=== PATIENT | male | born 1945 | race Two or more races ===

== ENCOUNTER → 2018-02-02 12:29 | Outpatient (CLI) | payer MEDICARE, SELFPAY ==
[2018-02-02 13:47] LABS: PSA,Total- Diagnostic 0.73 ng/mL (0.0-4.0)
== END ==
PROVIDERS: Family Provider Family Medicine; PCP Family Medicine; Visit Provider Urology
DX: R97.20 Elevated prostate specific antigen [PSA] (principal)
CPT/HCPCS: 36415; 84153

== ENCOUNTER 2018-02-15 10:20 | Emergency (ER) | payer MEDICARE, SELFPAY ==
[2018-02-15 10:21] VITALS: BP 173/103; PULSE 141; RESP 22; TEMP 36.7; O2SAT 100; BMI 27.6
--- NOTE | 2018-02-15 10:21 | EKG12_ITS ---
Test Reason : CP Blood Pressure : / mmHG Vent. Rate : 142 BPM Atrial Rate : 125 BPM P-R Int : 000 ms QRS Dur : 090 ms QT Int : 292 ms P-R-T Axes : 000 -04 063 degrees QTc Int : 449 ms Inferior infarct , age undetermined Abnormal ECG Confirmed by TREVOR HASSAN, BRANDIE ([id number]), video news editor ASHOK MALAVE ([id number]) on 02/20/2018 1:03:55 PM Referred By: MELISSA Confirmed By:BRANDIE MURRAY MD
--- NOTE | 2018-02-15 10:35 | EKG12_ITS ---
Test Reason : REPEAT Blood Pressure : / mmHG Vent. Rate : 126 BPM Atrial Rate : 126 BPM P-R Int : 148 ms QRS Dur : 072 ms QT Int : 314 ms P-R-T Axes : 052 014 053 degrees QTc Int : 454 ms Sinus tachycardia Otherwise normal ECG Confirmed by BRANDIE MURRAY MD ([id number]), newspaper editor ASHOK MALAVE ([id number]) on 02/17/2018 1:23:36 PM Referred By: MELISSA Confirmed By:BRANDIE MURRAY MD
--- NOTE | 2018-02-15 10:35 | RAD_ITS ---
STUDY: X-RAY CHEST REASON FOR EXAM: Male, 72 years old. Tachycardia TECHNIQUE: Single AP portable view of the chest. COMPARISON: 12/03/2017. FINDINGS: The lungs are clear and expanded. There is no demonstrated pleural abnormality. Normal size heart. Normal mediastinum and jodi. Normal visualized pulmonary arteries. There is mild atherosclerotic tortuosity of the aortic arch and descending thoracic aorta. There are mild degenerative changes of the visualized thoracic spine. Normal visualized ribs, clavicles, and shoulders. There is no demonstrated abnormality of the visualized soft tissue structures of the upper abdomen. RAD/Chest 1 View (Portable) IMPRESSION: No active pulmonary disease. Electronically Signed: Cliff Anderson MD at 11:31 EDT Tel , Service support ,
[2018-02-15 10:38] VITALS: O2SAT 100
--- NOTE | 2018-02-15 10:45 | ED.RN ---
Dr. Red in room attempting vagal maneuver by having the patient blow through syringe and then placing the patient into supine position without positive outcome. patient hr 153 at this time. will continue to monitor.
[2018-02-15 10:48] LABS: Absolute Lymphocyte Count 4.73 X10^3/ul (0.83-4.51); Absolute Neutrophil Count 5.2 X10^3/uL (2.0-7.7); Basophil# 0.05 X10^3/uL; Basophil% 0.5 % (0-1); Eosinophil# 0.31 X10^3/uL; Eosinophils% 2.8 % (0-5); Hematocrit 42.1 % (40-54); Hemoglobin 14.3 g/dl (13.0-16.5); Lymphocyte # 4.73 X10^3/ul (4.0); Lymphocyte % 43.2 % (19-41); Mean Corpuscular Hgb 28.7 pg (27.0-32.0); Mean Corpuscular Volume 84.4 fL (80-94); Mean Platelet Vol. 9.7 fl (6.2-12.0); Monocyte# 0.66 X10^3/uL; Neutrophil # 5.18 X10^3/uL (2.7-7.7); Neutrophil % 47.3 % (47-70); Platelet Count 330 K/mm3 (150-450); RBC Distribution Width CV 13.4 % (11.6-14.6); RBC Distribution Width SD 41.1 fl (35.1-43.9); Red Blood Count 4.99 M/mm3 (4.6-6.2)
[2018-02-15 10:51] LABS: POSITIVE COUNT NO; POSITIVE DIFFERENTIAL NO; POSITIVE MORPHOLOGY NO
[2018-02-15] MEDS: Aspirin 81 MG TAB.CHEW 324 MG PO (10:52)
[2018-02-15] MEDS: 0.9% Normal Saline 1,000 ML 150 ML IV (10:52)
[2018-02-15] MEDS: Adenosine 6 MG/2 ML Syringe IV (10:57)
[2018-02-15 11:07] LABS: Anion Gap 8 (5-15); BUN 18 mg/dL (7-18); BUN/Creat Ratio 16.7 RATIO (10-20); Chloride 103 mmol/L (98-107); Creatinine, Serum 1.08 mg/dL (0.70-1.30); EST Glomerular Filtration Rate 72 mL/min (>60); Est Glom Filt Rate - Afr Amer 87 mL/min (>60); Estimated Creatinine Clearance 61.57 ml/min; Glucose 228 mg/dL (74-106); Potassium 3.9 mmol/L (3.5-5.1); Sodium Level 138 mmol/L (136-145); Thyroid Stim Hormone (TSH) 0.78 uIU/mL (0.358-3.74)
[2018-02-15 11:20] VITALS: BP 147/80; PULSE 98
--- NOTE | 2018-02-15 11:34 | ED.VISSUMM ---
- ER Visit Summary Date of Service: 02/15/18 Chief Complaint: Palpitations, chest tightness History of Present Illness: The patient is a 72 M he states he was getting ready for nondenominational this morning when he developed palpitations and a tightness across his chest. He felt slightly lightheaded and short of breath. He did not feel that he is going to pass out. Patient states he checked his pulse on his Fitbit and his pulse rate was reading 171. Patient has a history of SVT he was seen nearly 2 years ago for. Patient states he wore a 30 day event monitor with no events or problems since that time. He follows up with Dr. Bello as an outpatient. Physical Examination: Vital signs include a blood pressure 173/103, temperature 98.1, heart rate 141, respiratory rate 22, pulse ox 100% on room air. Head neck examination is unremarkable. Heart is tachycardic and regular. Lung sounds are clear. Abdomen is soft nontender. Lower extremity examination was no calf tenderness or edema. Test Results: EKG reveals SVT with rate of 142. No acute ST changes noted. Chest x-ray is unremarkable. CBC and chemistry studies are significant for a glucose of 228, otherwise unremarkable. Bone is less than 0.02. TSH is 0.78. Emergency Department Course and Treatment: Patient was given aspirin. Adenosine 6 mg IV was given with conversion to a sinus tach rhythm at 125. P waves are clearly visible. Repeat EKG is sinus tach at 126 with no sign of ischemia. On repeat evaluation patient is resting comfortably. His blood pressure is 147/80 and his heart rate is 98. I did review prior records. Patient had a stress echocardiogram in March 2016 and a 30 day event monitor in April 2016. I spoke with Dr. Gardiner. Patient is to be placed on metoprolol 25 mg twice daily and call the office tomorrow for follow-up with Dr. Bello. Treatment Plan: [] Disposition: Discharge Impression: SVT with chemical cardioversion This note was generated with [employer] dictation software. It may contain incorrect words, spelling, and punctuation that were not noted in review of the chart prior to signing ED Disposition - Plan for ED Patient: Chief Complaint: Chest Pain Referrals: Homero Warren DO [Primary Care Provider] -
--- NOTE | 2018-02-15 11:40 | ED.DEP ---
ED Disposition - Plan for ED Patient: Disposition: Home or Assisted Living Chief Complaint: Chest Pain Instructions: ED Tachycardia Pat PSVT Prescriptions: Metoprolol Tartrate 25 mg PO BID #60 tablet Referrals: Kannan Bello MD [STAFF PHYSICIAN] - 1-2 Weeks
[2018-02-15 11:51] VITALS: BP 142/88; PULSE 106; RESP 18; O2SAT 98
[2018-02-15] MEDS: Metoprolol Tartrate 25 MG Tablet PO (12:04)
== END 2018-02-15 12:06 | disposition home or self-care (01) ==
PROVIDERS: Emergency Provider Emergency Medicine; Family Provider Family Medicine; PCP Family Medicine
DX: I47.1 Supraventricular tachycardia (principal); I10 Essential (primary) hypertension; Z85.46 Personal history of malignant neoplasm of prostate
CPT/HCPCS: 71045; 80048; 84443; 84484; 85025; 93005; 99284; J7030; A4216; J0153

== ENCOUNTER → 2018-03-12 12:22 | Outpatient (CLI) | payer MEDICARE, SELFPAY ==
--- NOTE | 2018-03-12 12:23 | STEWCON_ITS ---
Reason For Study: Arrhythmia, SVT Stress Results Protocol: Stress Echocardiogram Maximum Predicted HR: 150 bpm Target HR: 128 bpm% Maximum Pr edicted HR: 107 % DurationHeart Rate Stage (mm:ss) (bpm) BPCom ment BASELINE 65 128/84 DEFINITY 4 ML DILUTED USED DURING STRESS MOR PROCOTOL- STAGE 1 3:00 11 4 124/80 MOR PROTOCOL- STAGE 2 3:00 14 2 138/80 MOR PROTOCOL- STAGE 3 0:45 16 0 / RECOVERY 98 130/60 Stress Duration: 6:45 mm:ss Maximum Stress HR: 160 bpm Baseline Echocardiogram Findings The estimated ejection fraction is 65 %. Stress Echo Wall motion Data Resting WMIntermediate WMStress WM Resting Wall Motion Wall Motion Stress No regional wall motion No regional wall motion abnormalities noted. abnormalities noted. EKG Data Normal intervals are noted. The patient exercised according to the regular Mor protocol for a total duration of 6:46. The maximum heart rate attained was 160 beats per minute. This was 106% of maximum predicted heart rate. At peak exercise, upsloping ST changes only were noted, which did not meet the criteria for ischemia. No clinical angina was noted. Interpretation Summary The study was technically difficult. Contrast injection was performed. The estimated ejection fraction is 65 %. Normal, adequate, treadmill echocardiogram. Negative for ischemia by EKG and echocardiographic criteria. Average exercise capacity for age. No anginal symptoms noted. Rare PVCs noted. Appropriate blood pressure response to exercise. Final LVEF is 75%. Decreased sensitivity due to poor echo windows requiring Definity enhancing agent. Patient tolerated procedure well. No complications. Ordering Physician: Kannan Bello Referring Physician: Kannan Bello Performed By: Heather Mitchell, AGUSTIN, RVT
== END ==
PROVIDERS: Family Provider Family Medicine; PCP Family Medicine; Visit Provider Internal Medicine Cardiovascular Disease
DX: I47.1 Supraventricular tachycardia (principal); I10 Essential (primary) hypertension
CPT/HCPCS: 93017; 93350; Q9957; A4216; C8928

== ENCOUNTER → 2018-09-23 12:01 | Outpatient (CLI) | payer MEDICARE, SELFPAY ==
[2018-09-23 16:04] LABS: ALB/GLOB Ratio 0.8 RATIO (0.9-2.4); AST(SGOT) 27 U/L (15-37); Alanine Aminotransfer ALT/SGPT 44 U/L (16-61); Albumin, Serum 3.3 g/dL (3.2-5.0); Alkaline Phosphatase 109 U/L (45-117); Anion Gap 12 (5-15); BUN 19 mg/dL (7-18); BUN/Creat Ratio 20.1 RATIO (10-20); Calcium,Total 8.8 mg/dL (8.5-10.1); Chloride 98 mmol/L (98-107); Creatinine, Serum 0.94 mg/dL (0.70-1.30); EST Glomerular Filtration Rate 84 mL/min (>60); Est Glom Filt Rate - Afr Amer 101 mL/min (>60); Globulin 4.1 g/dL (2.2-4.2); Glucose 370 mg/dL (74-106); Potassium 4.4 mmol/L (3.5-5.1); Protein, Total 7.4 g/dL (6.4-8.2); Sodium Level 134 mmol/L (136-145)
[2018-09-23 16:05] LABS: Hemoglobin A1c 11.9 % (4.2-6.3)
== END ==
PROVIDERS: Family Provider Family Medicine; PCP Family Medicine; Visit Provider Family Medicine
DX: E11.9 Type 2 diabetes mellitus without complications (principal)
CPT/HCPCS: 36415; 80053; 83036

== ENCOUNTER → 2018-09-28 13:31 | Outpatient (CLI) | payer MEDICARE, SELFPAY ==
--- NOTE | 2018-09-28 13:40 | RAD_ITS ---
STUDY: X-RAY CHEST REASON FOR EXAM: Male, 72 years old. Cough after spending time in [place]. TECHNIQUE: PA and lateral views of the chest. COMPARISON: February 15, 2018. FINDINGS: The lungs are clear and expanded. There is no demonstrated pleural abnormality. Normal size heart. Normal mediastinum and jodi. Normal visualized pulmonary arteries. Normal visualized aortic arch and descending thoracic aorta. Normal visualized thoracic spine. Normal visualized ribs, clavicles, and shoulders. There is no demonstrated abnormality of the visualized soft tissue structures of the upper abdomen. RAD/Chest PA and Lateral IMPRESSION: No acute cardiopulmonary disease or interval change. Electronically Signed: Javier Gerard DO at 19:24 EST Tel [phone], Service support ,
[2018-09-28 15:42] LABS: Absolute Neutrophil Count 4.8 X10^3/uL (2.0-7.7); Basophil# 0.04 X10^3/uL; Basophil% 0.5 % (0-1); Eosinophil# 0.26 X10^3/uL; Eosinophils% 3.3 % (0-5); Hematocrit 42.7 % (40-54); Hemoglobin 14.3 g/dl (13.0-16.5); Lymphocyte % 26.7 % (19-41); Mean Corp Hgb Conc 33.5 g/gl (32-36); Mean Corpuscular Hgb 27.4 pg (27.0-32.0); Mean Corpuscular Volume 81.8 fL (80-94); Mean Platelet Vol. 10.2 fl (6.2-12.0); Monocyte# 0.61 X10^3/uL; Monocyte% 7.8 % (0-10); Neutrophil # 4.84 X10^3/uL (2.7-7.7); Neutrophil % 61.4 % (47-70); Platelet Count 378 K/mm3 (150-450); RBC Distribution Width CV 13.1 % (11.6-14.6); RBC Distribution Width SD 38.7 fl (35.1-43.9); Red Blood Count 5.22 M/mm3 (4.6-6.2); White Blood Count 7.9 K/mm3 (4.4-11.0)
[2018-09-28 15:44] LABS: ALB/GLOB Ratio 0.8 RATIO (0.9-2.4); AST(SGOT) 23 U/L (15-37); Alanine Aminotransfer ALT/SGPT 44 U/L (16-61); Albumin, Serum 3.3 g/dL (3.2-5.0); Alkaline Phosphatase 105 U/L (45-117); Anion Gap 7 (5-15); BUN 22 mg/dL (7-18); BUN/Creat Ratio 19.6 RATIO (10-20); CPK Total, Creatine Kinase 46 U/L (39-308); Chloride 98 mmol/L (98-107); Creatinine, Serum 1.12 mg/dL (0.70-1.30); EST Glomerular Filtration Rate 69 mL/min (>60); Est Glom Filt Rate - Afr Amer 83 mL/min (>60); Glucose 357 mg/dL (74-106); Potassium 4.3 mmol/L (3.5-5.1); Protein, Total 7.3 g/dL (6.4-8.2); Sodium Level 132 mmol/L (136-145)
[2018-09-28 16:01] LABS: POSITIVE COUNT NO; POSITIVE DIFFERENTIAL NO; POSITIVE MORPHOLOGY NO
[2018-09-28 17:00] LABS: Erythrocyte Sedimentation Rate 16 mm/hr (0-20)
== END ==
PROVIDERS: Family Provider Family Medicine; PCP Family Medicine; Referring Provider Family Medicine; Visit Provider Family Medicine
DX: J06.9 Acute upper respiratory infection, unspecified (principal)
CPT/HCPCS: 36415; 71046; 80053; 82550; 85025; 85652; 86140

== ENCOUNTER → 2019-02-02 07:13 | Outpatient (CLI) | payer MEDICARE, SELFPAY ==
[2018-02-17 14:09] VITALS: BMI 27.0
--- NOTE | 2019-02-02 07:51 | RAD_ITS ---
STUDY: X-RAY CHEST REASON FOR EXAM: Male, 73 years old. Productive cough x1 week TECHNIQUE: PA and lateral views of the chest. COMPARISON: 09/28/2018 FINDINGS: The lungs are clear and expanded. There is no demonstrated pleural abnormality. Normal size heart. Normal mediastinum and jodi. Normal visualized pulmonary arteries. Normal visualized aortic arch and descending thoracic aorta. Normal visualized thoracic spine. Normal visualized ribs, clavicles, and shoulders. There is no demonstrated abnormality of the visualized soft tissue structures of the upper abdomen. RAD/Chest PA and Lateral IMPRESSION: Normal x-ray examination of the chest. Electronically Signed: Juan David Colon DO at 13:31 EDT Tel , Service support ,
[2019-02-02 08:17] LABS: ALB/GLOB Ratio 0.9 RATIO (0.9-2.4); AST(SGOT) 18 U/L (15-37); Alanine Aminotransfer ALT/SGPT 31 U/L (16-61); Albumin, Serum 3.6 g/dL (3.2-5.0); Alkaline Phosphatase 85 U/L (45-117); Anion Gap 5 (5-15); BUN 18 mg/dL (7-18); BUN/Creat Ratio 16.8 RATIO (10-20); Calcium,Total 8.6 mg/dL (8.5-10.1); Chloride 104 mmol/L (98-107); Cholesterol 152 mg/dL (200); Creatinine, Serum 1.07 mg/dL (0.70-1.30); EST Glomerular Filtration Rate 72 mL/min (>60); Est Glom Filt Rate - Afr Amer 88 mL/min (>60); Globulin 3.9 g/dL (2.2-4.2); Glucose 168 mg/dL (74-106); High Density Lipoprotein 52 mg/dL; Potassium 4.4 mmol/L (3.5-5.1); Protein, Total 7.5 g/dL (6.4-8.2); Sodium Level 135 mmol/L (136-145); Triglycerides 126 mg/dL; Very Low Density Lipoprotein 25 mg/dL (5-40)
[2019-02-02 08:20] LABS: Hemoglobin A1c 7.9 % (4.2-6.3)
[2019-02-02 08:54] LABS: Microalbumin,Random Urine 40.8 mg/L (NO RANGE EST.); Microalbumin:Creatinine Ratio 12.1 mg/g CRE (<30 mg/g CRE)
== END ==
PROVIDERS: Family Provider Family Medicine; PCP Family Medicine; Referring Provider Family Medicine; Visit Provider Family Medicine
DX: R05 Cough (principal); E11.9 Type 2 diabetes mellitus without complications
CPT/HCPCS: 36415; 71046; 80053; 80061; 82043; 82570; 83036

== ENCOUNTER 2019-02-07 08:51 | Emergency (ER) | payer MEDICARE, SELFPAY ==
[2019-02-07 08:51] VITALS: BP 150/80; PULSE 91; RESP 16; TEMP 36.4; O2SAT 99; BMI 26.7
[2019-02-07 08:53] VITALS: BP 150/80; PULSE 91; RESP 16; TEMP 36.4; O2SAT 99
--- NOTE | 2019-02-07 09:24 | EKG12_ITS ---
Test Reason : GEN ILLNESS Blood Pressure : / mmHG Vent. Rate : 073 BPM Atrial Rate : 073 BPM P-R Int : 190 ms QRS Dur : 070 ms QT Int : 392 ms P-R-T Axes : 012 -03 046 degrees QTc Int : 431 ms Normal sinus rhythm Normal ECG Confirmed by TREVOR HASSAN, BRANDIE ([id number]), science editor MISHA MACIAS ([id number]) on 02/08/2019 1:07:08 PM Referred By: Homero Warren Confirmed By:BRANDIE MURRAY MD
[2019-02-07 09:50] LABS: Absolute Lymphocyte Count 1.31 X10^3/ul (0.83-4.51); Absolute Neutrophil Count 5.1 X10^3/uL (2.0-7.7); Basophil# 0.03 X10^3/uL; Basophil% 0.4 % (0-1); Eosinophil# 0.24 X10^3/uL; Eosinophils% 3.3 % (0-5); Hemoglobin 13.2 g/dl (13.0-16.5); Lymphocyte # 1.31 X10^3/ul (4.0); Mean Corpuscular Hgb 27.9 pg (27.0-32.0); Mean Corpuscular Volume 84.6 fL (80-94); Mean Platelet Vol. 9.3 fl (6.2-12.0); Monocyte# 0.61 X10^3/uL; Monocyte% 8.4 % (0-10); Neutrophil # 5.09 X10^3/uL (2.7-7.7); Neutrophil % 69.8 % (47-70); Platelet Count 277 K/mm3 (150-450); RBC Distribution Width CV 12.6 % (11.6-14.6); RBC Distribution Width SD 38.3 fl (35.1-43.9); Red Blood Count 4.73 M/mm3 (4.6-6.2); White Blood Count 7.3 K/mm3 (4.4-11.0)
--- NOTE | 2019-02-07 09:56 | ED.VISSUMM ---
- ER Visit Summary Date of Service: 02/07/19 Chief Complaint: Cough, congestion, dizziness History of Present Illness: The patient is a 73 M who presents with cough, congestion, dizziness that is been getting worse over the past week. Patient states he saw his primary care physician 6 days ago who did a chest x-ray at that time which was negative. Patient states his cough has gotten worse since that time. Patient admits to some mild yellow sputum. Patient admits to some pain in his chest with coughing. Patient states he also had a syncopal episode 5 days ago. Patient states he was shaving and felt dizzy. Patient states he went to sit down when he passed out and fell to the floor. Patient complains of some pain over his left lower ribs. Patient admits to some nausea but denies any vomiting. Patient admits to subjective chills at home. Physical Examination: Vital signs are stable. Patient is afebrile. Patient is in no acute distress. Oral mucosa is pink and moist. Neck is supple. Trachea is midline. There is no JVD noted. Heart was regular rate and rhythm. Lungs are clear and equal bilateral. Abdomen is soft and nontender. There is tenderness over the left lower chest wall. Cranial nerves II through XII are intact. There are no focal motor or sensory deficits noted. Test Results: EKG showed normal sinus rhythm with a rate of 73. There are no acute ST or T wave changes. PA and lateral chest x-ray was obtained. There is no acute pulmonary process. CBC, basic metabolic profile, and troponin were obtained and were normal. Emergency Department Course and Treatment: Patient felt better on reevaluation. Patient was instructed to continue his codeine/guaifenesin cough medicine as needed. Patient was instructed to follow-up with his primary care physician in 7-10 days. Patient understood and was agreeable with the plan. All questions were answered. Disposition: Discharge home Impression: Viral upper respiratory infection This note was generated with [employer] dictation software. It may contain incorrect words, spelling, and punctuation that were not noted in review of the chart prior to signing ED Disposition - Plan for ED Patient: Disposition: Home or Assisted Living Diagnosis: Viral upper respiratory tract infection with cough Instructions: ED URI Viral Referrals: Homero Warren DO [Primary Care Provider] - 5-7 Days
[2019-02-07 10:01] LABS: POSITIVE COUNT NO; POSITIVE DIFFERENTIAL NO; POSITIVE MORPHOLOGY NO
[2019-02-07 10:04] VITALS: BP 122/54; BP 128/60; BP 134/68; PULSE 70; PULSE 72; PULSE 74
[2019-02-07 10:06] LABS: Anion Gap 9 (5-15); BUN 18 mg/dL (7-18); BUN/Creat Ratio 16.2 RATIO (10-20); Calcium,Total 8.8 mg/dL (8.5-10.1); Chloride 101 mmol/L (98-107); Creatinine, Serum 1.11 mg/dL (0.70-1.30); EST Glomerular Filtration Rate 69 mL/min (>60); Est Glom Filt Rate - Afr Amer 84 mL/min (>60); Estimated Creatinine Clearance 59.05 ml/min; Glucose 266 mg/dL (74-106); Potassium 4.6 mmol/L (3.5-5.1); Sodium Level 137 mmol/L (136-145)
--- NOTE | 2019-02-07 10:25 | RAD_ITS ---
STUDY: X-RAY CHEST REASON FOR EXAM: Male, 73 years old. Cough. Congestion. TECHNIQUE: PA and lateral views of the chest. COMPARISON: February 02, 2019 FINDINGS: The lungs are clear and expanded. There is no demonstrated pleural abnormality. Normal size heart. Normal mediastinum and jodi. Normal visualized pulmonary arteries. Normal visualized aortic arch and descending thoracic aorta. There is demineralization of the osseous structures. Mild degenerative change of the spine. Normal visualized ribs, clavicles, and shoulders. There is no demonstrated abnormality of the visualized soft tissue structures of the upper abdomen. RAD/Chest PA and Lateral IMPRESSION: Degenerative changes, as described above. No demonstrated acute cardiopulmonary process. Electronically Signed: Alex Maradiaga MD at 11:19 EDT , Service support ,
--- NOTE | 2019-02-07 12:07 | ED.RN ---
PT'S APPROACHES THE DESK ABOUT PATIENT'S STATUS. MADE AWARE AGAIN THAT WE WERE WAITING FOR THE PHYSICIAN TO COME AND SPEAK WITH THEM. PATIENT'S STATES I'M NEVER COMING BACK. TECHNOLOGY STRATEGIST TO THE BEDSIDE.
[2019-02-07 12:10] VITALS: BP 136/74; PULSE 71; RESP 16; O2SAT 96
--- NOTE | 2019-02-07 12:19 | ED.RN ---
PATIENT RINGS OUT STATING I'M READY TO GO. IV DC'ED, CATHETER INTACT, SMALL GAUZE DRESSING PLACED. PATIENT MADE AWARE WHEN THIS RN GETS PAPERWORK THEY WILL BE DISCHARGED. PATIENT STATES I'VE BEEN WAITING FOR 6 HOURS IN PAIN, YOU THINK I'M LEAVING WITHOUT MY PAPERWORK? PATIENT MADE AWARE THAT THE DOCTOR PROVIDES THE PAPERWORK AND WHEN HE HAS IT READY HE WILL BE DISCHARGED. PATIENT STATES IT'S ALWAYS SOMEBODY ELSE'S RESPONSIBILITY.
--- NOTE | 2019-02-07 12:23 | ED.RN ---
DISCHARGE INSTRUCTIONS OBTAINED AND REVIEWED WITH PATIENT. PATIENT DENIES QUESTIONS OR CONCERNS AND VOICES UNDERSTANDING OF DISCHARGE INSTRUCTIONS. PT AMBULATES OUT OF ROOM WITHOUT DIFFICULTY.
== END 2019-02-07 12:23 | disposition home or self-care (01) ==
PROVIDERS: Emergency Provider Emergency Medicine; Family Provider Family Medicine; PCP Family Medicine
DX: J06.9 Acute upper respiratory infection, unspecified (principal); E11.9 Type 2 diabetes mellitus without complications; I10 Essential (primary) hypertension; Z85.46 Personal history of malignant neoplasm of prostate
CPT/HCPCS: 71046; 80048; 84484; 85025; 93005; 99283

== ENCOUNTER → 2019-09-17 12:21 | Outpatient (CLI) | payer MEDICARE, SELFPAY ==
--- NOTE | 2019-09-17 12:30 | RAD_ITS ---
STUDY: X-RAY CHEST REASON FOR EXAM: Male, 73 years old. Frequent coughs, congestion TECHNIQUE: PA and lateral views of the chest. COMPARISON: 02/07/2019 FINDINGS: The lungs are clear and expanded. There is no demonstrated pleural abnormality. Normal size heart. Normal mediastinum and jodi. Normal visualized pulmonary arteries. Normal visualized aortic arch and descending thoracic aorta. Normal visualized thoracic spine. Normal visualized ribs, clavicles, and shoulders. There is no demonstrated abnormality of the visualized soft tissue structures of the upper abdomen. RAD/Chest PA and Lateral IMPRESSION: No acute pulmonary process Electronically Signed: Daniel De Leon MD at 9:11 EDT , Service support ,
== END ==
PROVIDERS: Family Provider Family Medicine; PCP Family Medicine; Referring Provider Family Medicine; Visit Provider Family Medicine
DX: R05 Cough (principal)
CPT/HCPCS: 71046

== ENCOUNTER → 2020-07-25 | Outpatient (CLI) | payer MEDICARE, SELFPAY ==
[2020-07-25 17:01] LABS: PSA,Total- Diagnostic 0.57 ng/mL (0.0-4.0)
== END | disposition home or self-care (01) ==
LOC: LAB 15:40
PROVIDERS: PCP Family Medicine; Referring Provider Urology; Visit Provider Urology
DX: C61 Malignant neoplasm of prostate (principal)
CPT/HCPCS: 36415; 84153

== ENCOUNTER → 2020-07-31 | Outpatient (CLI) | payer MEDICARE, SELFPAY ==
[2020-07-31 08:05] LABS: Microalbumin,Random Urine < 5.0 mg/L (NO RANGE EST.)
[2020-07-31 08:37] LABS: ALB/GLOB Ratio 0.9 RATIO (0.9-2.4); AST(SGOT) 18 U/L (15-37); Alanine Aminotransfer ALT/SGPT 40 U/L (16-61); Albumin, Serum 3.6 g/dL (3.2-5.0); Alkaline Phosphatase 92 U/L (45-117); Anion Gap 5 (5-15); BUN 18 mg/dL (7-18); BUN/Creat Ratio 18.5 RATIO (10-20); Calcium,Total 8.9 mg/dL (8.5-10.1); Chloride 106 mmol/L (98-107); Cholesterol 196 mg/dL (200); Creatinine, Serum 0.97 mg/dL (0.70-1.30); EST Glomerular Filtration Rate 80 mL/min (>60); Est Glom Filt Rate - Afr Amer 97 mL/min (>60); Glucose 144 mg/dL (74-106); High Density Lipoprotein 65 mg/dL; Potassium 4.2 mmol/L (3.5-5.1); Protein, Total 7.6 g/dL (6.4-8.2); Sodium Level 139 mmol/L (136-145); Thyroid Stim Hormone (TSH) 1.05 uIU/mL (0.358-3.74); Triglycerides 125 mg/dL; Very Low Density Lipoprotein 25 mg/dL (5-40)
[2020-07-31 08:50] LABS: Absolute Lymphocyte Count 2.84 X10^3/uL (0.83-4.51); Absolute Neutrophil Count 4.4 X10^3/uL (2.0-7.7); Basophil# 0.06 X10^3/uL; Basophil% 0.7 % (0-1); Eosinophil# 0.38 X10^3/uL; Eosinophils% 4.5 % (0-5); Hematocrit 43.9 % (40-54); Hemoglobin 13.9 g/dL (13.0-16.5); Lymphocyte # 2.84 X10^3/ul (4.0); Lymphocyte % 33.9 % (19-41); Mean Corp Hgb Conc 31.7 g/dL (32-36); Mean Corpuscular Hgb 27.2 pg (27.0-32.0); Mean Corpuscular Volume 85.9 fL (80-94); Mean Platelet Vol. 9.7 fl (6.2-12.0); Monocyte# 0.69 X10^3/uL; Monocyte% 8.2 % (0-10); NRBC Flagged by Analyzer 0 % (0-5); Neutrophil % 52.6 % (47-70); Platelet Count 305 K/mm3 (150-450); RBC Distribution Width CV 13.4 % (11.6-14.6); RBC Distribution Width SD 41.7 fl (35.1-43.9); Red Blood Count 5.11 M/mm3 (4.6-6.2); White Blood Count 8.4 K/mm3 (4.4-11.0)
== END | disposition home or self-care (01) ==
LOC: LAB 07:04
PROVIDERS: PCP Family Medicine; Referring Provider Family Medicine; Visit Provider Family Medicine
DX: E11.9 Type 2 diabetes mellitus without complications (principal); E01.0 Iodine-deficiency related diffuse (endemic) goiter; Z51.81 Encounter for therapeutic drug level monitoring
CPT/HCPCS: 36415; 80053; 80061; 82043; 82570; 84443; 85025

== ENCOUNTER → 2020-08-03 | Outpatient (CLI) | payer MEDICARE, SELFPAY ==
--- NOTE | 2020-08-03 14:23 | US_ITS ---
STUDY: THYROID ULTRASOUND REASON FOR EXAM: Male, 74 years old. NODULES TECHNIQUE: Ultrasound evaluation of the thyroid was performed with real-time and static gudino-scale imaging. COMPARISON: Comparison is made with prior ultrasound of the thyroid dated 03/02/2015. FINDINGS: RIGHT LOBE: The right lobe of the thyroid gland is enlarged and measures 6.1 cm x 3.7 cm x 3.1 cm. There is a homogeneous echotexture. There is a dominant complex solid and slight cystic nodule in the upper pole of the right lobe measuring 3.8 cm x 2.97 x 2.1 cm. Intranodular flow is seen. This has increased in size as compared to prior study. There is also evidence of a complex solid and cystic nodule in the upper pole measuring 1 cm x 1.5 cm x 1.2 cm. There is an 8 mm x 7 mm x 6 mm solid nodule with a peripheral calcifications in the lower pole. LEFT LOBE: The left lobe of the thyroid gland is enlarged and measures 5.6 x 1.7 cm x 2.2 cm. There is a homogeneous echotexture. There is a solid nodule measuring 2.3 cm x 1.87 x 1.7 cm in the inferior pole of the right lobe. There is also evidence of a complex solid and cystic nodule measuring 1.1 cm x 1.2 cm x 1.2 cm in the mid pole as well as a 1.5 cm x 1.1 cm x 0.9 cm solid nodule with increase flow in the lower pole. ISTHMUS: The isthmus is enlarged and measures 7 mm. The regional lymph nodes are normal. US/Thyroid IMPRESSION: Thyromegaly. Dominant nodules in both thyroid lobes as described. Biopsy is recommended. Electronically Signed: Jaylan Lewis, at 8:35 EDT , Service support ,
== END | disposition home or self-care (01) ==
LOC: US 14:21
PROVIDERS: PCP Family Medicine; Referring Provider Family Medicine; Visit Provider Family Medicine
DX: E04.2 Nontoxic multinodular goiter (principal)
CPT/HCPCS: 76536

== ENCOUNTER 2021-02-02 04:54 | Inpatient (IN) | payer MEDICARE, SELFPAY ==
[2021-02-02] VITALS (17 sets, daily range): BP systolic 104–133; BP diastolic 53–78; PULSE 74–144; RESP 16–34; TEMP 35.8–37.7; O2SAT 94–100; BMI 28.0; BMI 28.1; BMI 28.2
--- NOTE | 2021-02-02 04:58 | ED.RN ---
CALLED FOR EKG PER RN REQUEST, PULLED OLD EKGS FOR
--- NOTE | 2021-02-02 05:06 | EKG12_ITS ---
Test Reason : CP Blood Pressure : / mmHG Vent. Rate : 141 BPM Atrial Rate : 056 BPM P-R Int : 000 ms QRS Dur : 064 ms QT Int : 302 ms P-R-T Axes : 000 -13 047 degrees QTc Int : 462 ms Supraventricular tachycardia Nonspecific ST abnormality Abnormal ECG Confirmed by TREVOR HASSAN, BRANDIE ([id number]), editorial writer MISHA MACIAS ([id number]) on 02/06/2021 8:57:15 AM Referred By: CL Confirmed By:BRANDIE MURRAY MD
--- NOTE | 2021-02-02 05:06 | RAD_ITS ---
STUDY: X-RAY CHEST REASON FOR EXAM: Male, 75 years old. chest pain TECHNIQUE: Single frontal view of the chest. COMPARISON: 09/17/2019 FINDINGS: EKG leads artifacts. No pneumothorax or pleural effusion. Right greater than left bilateral basilar atelectasis/infiltrates. Normal size heart. Aortic calcifications. There are diffuse degenerative changes of the visualized thoracic spine. There is no demonstrated abnormality of the visualized soft tissue structures of the upper abdomen. RAD/Chest 1 View (Portable) IMPRESSION: Right greater than left bilateral basilar atelectasis/infiltrates. Question developing consolidation in the right lung base. Recommend follow-up radiograph to ensure resolution and to exclude underlying mass. Electronically Signed: Junior Marie MD at 5:45 EDT Tel , Service support ,
[2021-02-02 05:11] LABS: Absolute Lymphocyte Count 1.82 X10^3/uL (0.83-4.51); Absolute Neutrophil Count 12.2 X10^3/uL (2.0-7.7); Basophil# 0.05 X10^3/uL; Basophil% 0.3 % (0-1); Eosinophil# 0.08 X10^3/uL; Eosinophils% 0.5 % (0-5); Hematocrit 43.7 % (40-54); Hemoglobin 14.3 g/dL (13.0-16.5); Lymphocyte # 1.82 X10^3/ul (4.0); Lymphocyte % 12.1 % (19-41); Mean Corp Hgb Conc 32.7 g/dL (32-36); Mean Corpuscular Hgb 27.5 pg (27.0-32.0); Mean Platelet Vol. 9.9 fl (6.2-12.0); Monocyte# 0.88 X10^3/uL; Monocyte% 5.8 % (0-10); NRBC Flagged by Analyzer 0 % (0-5); Neutrophil # 12.21 X10^3/uL (2.7-7.7); Neutrophil % 80.9 % (47-70); Platelet Count 270 K/mm3 (150-450); RBC Distribution Width SD 39.6 fl (35.1-43.9); White Blood Count 15.1 K/mm3 (4.4-11.0)
[2021-02-02] MEDS: Adenosine 6 MG/2 ML Syringe IV (05:13)
[2021-02-02] MEDS: 0.9% Normal Saline 1,000 ML 999 ML IV (05:13)
[2021-02-02 05:24] LABS: Anion Gap 11 (5-15); BUN 16 mg/dL (7-18); BUN/Creat Ratio 13.8 RATIO (10-20); Calcium,Total 8.9 mg/dL (8.5-10.1); Chloride 102 mmol/L (98-107); Creatinine, Serum 1.16 mg/dL (0.70-1.30); EST Glomerular Filtration Rate 66 mL/min (>60); Est Glom Filt Rate - Afr Amer 79 mL/min (>60); Estimated Creatinine Clearance 53.03 ml/min; Glucose 256 mg/dL (74-106); Potassium 4.1 mmol/L (3.5-5.1); Sodium Level 135 mmol/L (136-145)
[2021-02-02] MEDS: Adenosine 6 MG/2 ML Syringe 12 MG IV (05:31)
--- NOTE | 2021-02-02 05:52 | CT_ITS ---
STUDY: CTA CHEST REASON FOR EXAM: Male, 75 years old. Cough. Chest tightness. Elevated white count. History of prostate cancer. RADIATION DOSAGE (If Supplied By Facility): CTDIvol = ( 12.28 ) mGy, DLP = ( 539.13 ) mGycm TECHNIQUE: The examination was performed with the intravenous administration of IV 75mL Isovue-370. Post-processing of the angiographic images was performed, with multiplanar reformation and 3D reconstruction. Individualized dose optimization techniques were used for this CT. COMPARISON: Comparison is made with prior chest radiograph done earlier in the day. FINDINGS: Small benign-appearing bilateral axillary lymph nodes. Normal enhancement of the main pulmonary artery and right and left pulmonary arteries. Normal enhancement of the bilateral peripheral pulmonary arteries. There is no demonstrated pulmonary embolism. Normal thoracic aorta and visualized great vessels. There is no demonstrated aortic dissection. Normal heart and pericardium. Normal mediastinum. Normal hilar regions. Normal visualized trachea and bronchi. The lungs are well expanded. Focal infiltrate in the posterior segment of the right upper lobe abutting the right minor fissure. Consolidation in the posterior aspect of the right middle lobe with air bronchograms. This abuts the right major fissure. Focal consolidation in the right lower lobe. Minimal increased markings in the left lower lobe. Normal pleura. Normal chest wall structures. There are mild degenerative changes of thoracic spine. Fatty infiltration of the liver. CT/CTA Chest W/WO Contrast IMPRESSION: Infiltrate in the posterior segment of the right upper lobe as well as in the right middle lobe and right lower minimal increased markings at the left lung base. No evidence of pulmonary embolism. Fatty infiltration of the liver. Electronically Signed: Jaylan Lewis MD at 8:08 EDT , Service support ,
[2021-02-02 06:32] LABS: Lactic Acid 1.8 mmol/L (0.4-1.9)
[2021-02-02] MEDS: Ceftriaxone 1 GM/50 ML BAG IV (07:32)
--- NOTE | 2021-02-02 07:51 | ED.VIS.GEN ---
History of Present Illness Chief Complaint: Chest Other Informant: Patient Narrative: 75-year-old male presents with concern for palpitations and chest tightness. States this began early this morning. States he began having a cough yesterday and was having some nausea without vomiting. Denies any diaphoresis. Patient does have a history of SVT. Denies any sick contacts. Denies any fever or chills at home. Past Medical History - Allergies and Home Meds Allergies/Adverse Reactions: Allergies No Known Allergies Allergy (Verified 02/02/21 05:08) Primary Care Physician: Homero Warren DO [Primary Care Provider] - Past Medical History: - - SVT and HTN Surgical History: noncontributory Lives: Spouse/ Significant Other Smoking Status: Never smoker Alcohol: None Drugs: None Review of Systems General: Denies: Chills, Fever, Sweats Eyes: Denies: Visual changes - bilaterally, Diplopia ENT: Denies: Rhinorrhea, Sore throat Cardiovascular: Reports: Chest pain, Palpitations Respiratory: Reports: Cough. Denies: Dyspnea, Dyspnea on exertion Gastrointestinal: Denies: Abdominal pain, Nausea, Vomiting, Diarrhea, Melena, Hematochezia Genitourinary: Denies: Dysuria, Hematuria, Frequency Musculoskeletal: Denies: Back pain, Extremity Pain Skin: Denies: Rash, Wounds Neurological: Denies: Headache, Weakness, Numbness Physical Exam Vital Signs/Narrative: Vital Signs Temp Pulse Resp BP Pulse Ox 02/02/21 07:01 134 H 26 H 124/78 H 96 02/02/21 06:11 135 H 20 H 118/73 98 02/02/21 06:07 135 H 34 H 118/73 96 02/02/21 05:17 136 H 02/02/21 04:55 96.4 F L 144 H 20 H 107/71 97 Inital Vital Signs reviewed: Yes General: Well nourished, Well developed, No Acute Distress Head: Normocephalic, Atraumatic Eyes: Perrl, EOMI ENT: Moist mucous membranes, No rhinorrhea Neck: Supple, Nontender Cardiovascular: Regular rhythm, No murmurs, Tachycardia Respiratory: No distress, CTA bilaterally, Chest nontender Abdomen: Soft, Nontender, Nondistended, Normal bowel sounds Back: Nontender, Normal Inspection Extremities: Nontender, No edema Skin: Normal color, No rash Neurological: Alert, Oriented x3, Cranial nerves II-XII grossly intact, Normal Strength, Normal Sensation Psychological: Normal affect, Normal Mood Diagnostic/Tx/Re-eval Chest X-Ray - ED: 1 View, Read by ED Physician, Read by Radiologist, - - Bilateral infiltrates worse on the right. - Rhythm Strip Rhythm Strip: SVT - EKG Initial EKG Interpretation: SVT - SVT at a rate of 141 bpm. QTC of [address] changes. - Medical Decision Making Patient appears well and nontoxic. Initially in SVT. Modified vagal maneuver attempted which was unsuccessful. Patient was given 1 L of normal saline and 6 mg and then 12 mg of adenosine without conversion. Chest x-ray concerning for pneumonia. Patient does have a 15,000 white blood cell count. He was given Rocephin and azithromycin. CTA was done which shows no evidence of pulmonary embolism. Confirms pneumonia. Patient will be admitted for further treatment and evaluation. Impression: 1. Sepsis 2. Community-acquired pneumonia 3. SVT ED Disposition - Plan for ED Patient: Referrals: Homero Warren DO [Primary Care Provider] -
--- NOTE | 2021-02-02 08:30 | ED.RN ---
pt swabbed for covid. pt has had both vaccines last one over a month ago
[2021-02-02] MEDS: Metoprolol Tartrate 5 MG/5 ML Vial IV (08:43)
--- NOTE | 2021-02-02 10:11 | EKG12_ITS ---
Test Reason : Blood Pressure : / mmHG Vent. Rate : 079 BPM Atrial Rate : 079 BPM P-R Int : 168 ms QRS Dur : 070 ms QT Int : 382 ms P-R-T Axes : 041 -05 032 degrees QTc Int : 438 ms Normal sinus rhythm Normal ECG When compared with ECG of 02-FEB-2021 10:21, MANUAL COMPARISON REQUIRED, DATA IS UNCONFIRMED Confirmed by TREVOR HASSAN, BRANDIE ([id number]), publications editor MISHA MACIAS ([id number]) on 02/06/2021 9:12:26 AM Referred By: GURVINDER Confirmed By:BRANDIE MURRAY MD
--- NOTE | 2021-02-02 11:36 | HP.PCM_ITS ---
History of Present Illness Date of Admission: 02/02/21 Chief Complaint: Palpitations The patient is a 75 year old M with a PMH as below presents from home with chest tightness and palpitations. He was found to be in SVT in the ER and was given 6 mg and then 12 mg of adenosine and his heart rate went from the 140s down to the 130s. He was also given a dose of 5 mg of Lopressor which brought his heart rate down into the 120s. He did not take his morning 25 mg metoprolol. He did develop a cough and chills yesterday and has not been feeling well for several days. Denies any fevers or chills at home no sick contacts or significant shortness of breath. In the ER he was found to have a white count of 15.1, and chest x-ray initially demonstrated a right greater than left infiltrate so a CTA was obtained which demonstrated an infiltrate in the right middle and upper lobes without pulmonary embolism. Covid testing was negative and he has been fully vaccinated he did recently travel to [place] to visit family and they have all been vaccinated as well. Past Medical History Past Medical History (Chronic Problems): Chronic Problems (Last Reviewed 02/17/18 @ 14:09 by Jessy Hernández) Supraventricular tachycardia (Chronic) Hypertension (Chronic) Medical History: Medical History (Last Reviewed 02/17/18 @ 14:09 by Jessy Hernández) Supraventricular tachycardia (Chronic) I47.1 Hypertension (Chronic) I10 Goiter E04.9 Prostate cancer C61 Type 2 diabetes mellitus without complications E11.9 Allergies No Known Allergies Allergy (Verified 02/02/21 05:08) Home Medications: Ambulatory Orders Medication Instructions Recorded Cholecalciferol (VIT D3) [Vitamin 2,000 unit PO DAILY 02/28/16 D] Multivitamin [Daily Multiple 1 each PO DAILY 02/28/16 Vitamin] Codeine Phosphate/Guaifenesin 10 ml PO Q4H PRN PRN 02/07/19 [Codeine-Guaifen 10-100 mg/5 ml] metoprolol tartrate 25 mg tablet 25 mg PO BID #180 tab 05/03/19 Glipizide [Glipizide ER] 5 mg PO DAILY 02/02/21 Surgical History: Surgical History (Last Reviewed 02/17/18 @ 14:09 by Jessy Hernández) S/P thyroid biopsy Onset Date: ~05/2017 Z98.890 excision pigmented skin lesion Onset Date: ~10/2012 Lives: Spouse/ Significant Other Smoking Status: Never smoker Alcohol: None Drugs: None - *Family History Maternal Family History: Family History (Last Reviewed 02/17/18 @ 14:09 by Jessy Hernández) Mother Hypertension Sister Hypertension Diabetes Father Kidney disease Review of Systems Constitutional: Reports: Chills. Denies: Fever, Weight Change HEENT: Denies: Head Aches, Sinus Congestion, Sinus Drainage Cardiovascular: Reports: Chest Tightness, Palpitations. Denies: Chest Pain Respiratory: Reports: Cough. Denies: Shortness of Breath, Shortness of breath at rest, Sputum production Gastrointestinal: Denies: Abdominal Pain, Nausea, Vomiting Genitourinary: Denies: Dysuria Musculoskeletal: Denies: Joint Pain, Joint Tenderness Skin: Denies: Rash, Wounds Neurological: Denies: Numbness, Tingling, Focal weakness Psychiatric: Denies: Anxiety, Depression Hematologic/ Lymphatic: Denies: Easy Bruising, Easy Bleeding VTE Information - Inpt Only VTE Present on Admission: No - Physical Exam Vitals/I&O's: Vital Signs Temp Pulse Resp BP Pulse Ox 98.5 F 122 H 16 129/76 H 100 02/02/21 10:01 02/02/21 10:01 02/02/21 10:01 02/02/21 10:01 02/02/21 10:01 Oxygen Delivery Method Room Air Weight: 179 lb 14.355 oz Body Mass Index (BMI) 28.1 Intake and Output for Last 24 Hours 01/31/21 02/01/21 02/02/21 23:59 23:59 23:59 Intake Total 1305 / 1305 Balance 1305 / 1305 General: Alert, Oriented x3, Cooperative, No apparent distress HEENT: Atraumatic, PERRLA, EOMI, Normocephalic Oral: Moist Mucosa Neck: Supple, No JVD Lungs: Clear to auscultation, Normal air movement, No rhonchi, No wheeze, No rales Cardiovascular: Normal S1, Normal S2, No murmurs, Tachycardic Abdomen: Soft, Non Tender, Non-Distended, No Hepato-splenomegaly Extremities: No edema, Capillary Refill Less than 3 Seconds Skin: No rashes, No breakdown Neurological: Neuro grossly intact, Sensory exam intact to light touch and pain Psych/Mental Status: Normal Affect, Appropriate Microbiology Past 72 Hours 02/02/21 08:30 Mucosa - Nose SARS-CoV-2 Antigen (Rapid) - Final Laboratory Results 02/02/21 05:00: WBC 15.1 H, RBC 5.20, Hgb 14.3, Hct 43.7, MCV 84.0, MCH 27.5, MCHC 32.7, RDW Std Deviation 39.6, RDW Coeff of Rg 13.0, Plt Count 270, MPV 9.9, Immature Gran % (Auto) 0.400, Neut % (Auto) 80.9 H, Lymph % (Auto) 12.1 L, [place] % (Auto) 5.8, Eos % (Auto) 0.5, Baso % (Auto) 0.3, Absolute Neuts (auto) 12.2 H, Absolute Lymphs (auto) 1.82, Nucleated RBC % 0 02/02/21 05:00: Sodium 135 L, Potassium 4.1, Chloride 102, Carbon Dioxide 22.0, Anion Gap 11, BUN 16, Creatinine 1.16, Estim Creat Clear Calc 53.03, Est GFR (MDRD) Af Amer 79, Est GFR (MDRD) Non-Af 66, BUN/Creatinine Ratio 13.8, Glucose 256 H, Calcium 8.9, Troponin I < 0.015 02/02/21 06:00: Lactic Acid 1.8 Current Medications Acetaminophen (Acetaminophen 325 Mg Tablet) 650 mg PO Q6H PRN PRN PRN Reason: Pain Score 1-10/Temp > 100.7 F Dextrose (Dextrose 50%-Water 25 Gm/50 Ml Disp.Syrin) 0 gm IV X1 PRN; Protocol PRN Reason: Hypoglycemia Enoxaparin Sodium (Enoxaparin 40 Mg/0.4 Ml Syringe) 40 mg SC DAILY [facility] Glucagon (Glucagon 1 Mg/Ml Syringe) 1 mg IM .X1 PRN PRN Reason: Hypoglycemia Sodium Chloride () 1,000 mls @ 100 mls/hr IV .Q10H [facility] Azithromycin 500 mg/ Dextrose 255 mls @ 250 mls/hr IV Q24 [facility] Ceftriaxone Sodium (Rocephin) 1 gm in 50 mls @ 100 mls/hr IV Q24 [facility] Insulin Human Lispro (Insulin Lispro 100 Unit/Ml Insuln.Pen) 0 unit SC ACHS [facility]; Protocol Melatonin (Melatonin 3 Mg Tablet) 3 mg PO QHS PRN PRN PRN Reason: INSOMNIA Metoprolol Tartrate (Metoprolol Tartrate 25 Mg Tablet) 25 mg PO BID [facility] Ondansetron HCl (Ondansetron 4 Mg/2 Ml Vial) 4 mg IV Q8H PRN PRN PRN Reason: NAUSEA/VOMITING Sodium Chloride (0.9% Saline Lock 10 Ml Syringe) 10 - 40 ml IV UD PRN PRN Reason: SALINE FLUSH Assessment/Plan 1. Sepsis secondary to a right-sided community-acquired pneumonia gram-positive organism -Continue with IV fluids as well as azithromycin and Rocephin -Covid testing was negative, and his last dose of his Covid vaccine was on 01/05/2021 -Denies being around any sick contacts -We will check strep and Legionella urine antigens as well as a sputum culture. Blood cultures are pending 2. Chronic SVT -This SVT could have potentially be precipitated by his sepsis and pneumonia -He was given 6 mg and 12 mg of adenosine in the ER as well as 5 mg of Lopressor, initial troponin is normal -We will provide him his oral Lopressor this morning and make any dose adjustments as necessary -My hope is that his SVT will improve with treatment of his pneumonia and the sepsis 3. DM 2 -We will hold his glipizide -Placed on sliding scale insulin -Accu-Cheks AC at bedtime, will make adjustments as necessary DVT: Lovenox Inpatient E&M: [id number] Init Hosp L3
[2021-02-02] MEDS: 0.9% Saline Lock 10 ML Syringe IV (11:43)
[2021-02-02] MEDS: 0.9% Normal Saline 1,000 ML 100 ML IV ×2 (11:43→21:07)
[2021-02-02] MEDS: Metoprolol Tartrate 25 MG Tablet PO ×2 (11:49→22:08)
[2021-02-02] MEDS: Enoxaparin 40 MG/0.4 ML Syringe SC (11:49)
[2021-02-02] MEDS: Insulin Lispro 100 UNIT/ML INSULN.PEN SC ×2 (11:50→16:34)
--- NOTE | 2021-02-02 11:50 | EKG12_ITS ---
Test Reason : RC Blood Pressure : / mmHG Vent. Rate : 124 BPM Atrial Rate : 053 BPM P-R Int : 000 ms QRS Dur : 068 ms QT Int : 326 ms P-R-T Axes : 000 -06 038 degrees QTc Int : 468 ms Accelerated Junctional rhythm Nonspecific ST abnormality Abnormal ECG When compared with ECG of 02-FEB-2021 04:58, MANUAL COMPARISON REQUIRED, DATA IS UNCONFIRMED Confirmed by TREVOR HASSAN, BRANDIE ([id number]), legal editor MISHA MACIAS ([id number]) on 02/06/2021 9:19:06 AM Referred By: GURVINDER Confirmed By:BRANDIE MURRAY MD
[2021-02-02 12:21] LABS: Bedside Glucose 303 mg/dL (70-110)
[2021-02-02 16:40] LABS: Bedside Glucose 152 mg/dL (70-110)
[2021-02-02] MEDS: Acetaminophen 325 MG Tablet 650 MG PO (22:07)
[2021-02-02 23:26] LABS: Bedside Glucose 128 mg/dL (70-110)
[2021-02-03] VITALS (12 sets, daily range): BP systolic 96–144; BP diastolic 63–85; PULSE 71–91; RESP 15–18; TEMP 36.7–37.7; O2SAT 96–99
[2021-02-03] MEDS: 0.9% Normal Saline 1,000 ML 100 ML IV ×2 (06:07→18:17)
[2021-02-03 06:42] LABS: Absolute Lymphocyte Count 1.64 X10^3/uL (0.83-4.51); Absolute Neutrophil Count 11.4 X10^3/uL (2.0-7.7); Basophil# 0.05 X10^3/uL; Basophil% 0.4 % (0-1); Eosinophil# 0.37 X10^3/uL; Eosinophils% 2.6 % (0-5); Hematocrit 37.3 % (40-54); Hemoglobin 11.8 g/dL (13.0-16.5); Lymphocyte # 1.64 X10^3/ul (4.0); Lymphocyte % 11.5 % (19-41); Mean Corp Hgb Conc 31.6 g/dL (32-36); Mean Corpuscular Hgb 27.2 pg (27.0-32.0); Mean Corpuscular Volume 85.9 fL (80-94); Mean Platelet Vol. 9.7 fl (6.2-12.0); Monocyte% 4.9 % (0-10); NRBC Flagged by Analyzer 0 % (0-5); Neutrophil # 11.38 X10^3/uL (2.7-7.7); Platelet Count 188 K/mm3 (150-450); RBC Distribution Width CV 13.3 % (11.6-14.6); RBC Distribution Width SD 41.3 fl (35.1-43.9); Red Blood Count 4.34 M/mm3 (4.6-6.2); White Blood Count 14.2 K/mm3 (4.4-11.0)
[2021-02-03 06:55] LABS: Bedside Glucose 122 mg/dL (70-110)
[2021-02-03 07:05] LABS: Anion Gap 6 (5-15); BUN 10 mg/dL (7-18); BUN/Creat Ratio 12.1 RATIO (10-20); Calcium,Total 8.1 mg/dL (8.5-10.1); Chloride 109 mmol/L (98-107); Creatinine, Serum 0.83 mg/dL (0.70-1.30); EST Glomerular Filtration Rate 97 mL/min (>60); Est Glom Filt Rate - Afr Amer 117 mL/min (>60); Estimated Creatinine Clearance 74.11 ml/min; Glucose 126 mg/dL (74-106); Potassium 4.1 mmol/L (3.5-5.1); Sodium Level 140 mmol/L (136-145)
--- NOTE | 2021-02-03 09:31 | CPS ---
Pt assessed. BS diminished and clear. 97% on room air. No aerosol rx needed at this time. Nurse informed of assessment.
[2021-02-03] MEDS: Enoxaparin 40 MG/0.4 ML Syringe SC (09:50)
[2021-02-03] MEDS: guaiFENesin 1,200 MG Tablet 1200 MG PO ×2 (09:50→23:26)
[2021-02-03] MEDS: Ceftriaxone 1 GM/50 ML BAG IV (09:50)
[2021-02-03] MEDS: Metoprolol Tartrate 25 MG Tablet PO ×2 (09:57→23:26)
[2021-02-03] MEDS: Insulin Lispro 100 UNIT/ML INSULN.PEN SC ×3 (11:58→23:25)
[2021-02-03 12:06] LABS: Bedside Glucose 213 mg/dL (70-110)
--- NOTE | 2021-02-03 13:37 | PN_ITS ---
Subjective: Patient seen and examined. He had no complaints and felt well. Review of systems otherwise negative. Remained hemodynamically stable. Vitals/I&O's: Vital Signs Temp Pulse Resp BP Pulse Ox 98.9 F 83 18 139/69 H 99 02/03/21 10:00 02/03/21 10:00 02/03/21 10:00 02/03/21 10:00 02/03/21 10:00 Oxygen Delivery Method Room Air Weight: 179 lb 14.355 oz Body Mass Index (BMI) 28.1 Intake and Output for Last 24 Hours 02/01/21 02/02/21 02/03/21 23:59 23:59 23:59 Intake Total 2735 / 2935 1505 / 1505 Balance 2735 / 2935 1505 / 1505 General: Alert, Oriented x3, Cooperative HEENT: Atraumatic, PERRLA, EOMI, Normocephalic Oral: Moist Mucosa Neck: Supple, No JVD, Negative Carotid Bruits Lungs: - - diminished breath sounds bibasally, with few crackles in right lower lung wells. On room air. Cardiovascular: Regular rate, No murmurs Abdomen: Bowel Sounds Present, Soft, Non Tender Extremities: No edema, Capillary Refill Less than 3 Seconds Skin: No rashes, No breakdown Musculoskeletal: No Tenderness to Palpation of Joints or Extremities Neurological: Cranial nerves II-XII grossly intact Psych/Mental Status: Normal Affect, Appropriate, Alert and oriented to time, place, person, mood and affect Microbiology Past 72 Hours 02/02/21 15:40 Sputum, Expectorated/Coughed Gram Stain - Final 02/02/21 13:20 Urine, Clean Catch Streptococcus pneumoniae Antigen (M - Final 02/02/21 13:20 Urine, Clean Catch Legionella Antigen - Final 02/02/21 08:30 Mucosa - Nose SARS-CoV-2 Antigen (Rapid) - Final Laboratory Results 02/02/21 16:31: POC Glucose 152 H 02/02/21 22:11: POC Glucose 128 H 02/03/21 06:26: WBC 14.2 H, RBC 4.34 L, Hgb 11.8 L, Hct 37.3 L, MCV 85.9, MCH 27.2, MCHC 31.6 L, RDW Std Deviation 41.3, RDW Coeff of Rg 13.3, Plt Count 188, MPV 9.7, Immature Gran % (Auto) 0.600, Neut % (Auto) 80.0 H, Lymph % (Auto) 11.5 L, [place] % (Auto) 4.9, Eos % (Auto) 2.6, Baso % (Auto) 0.4, Absolute Neuts (auto) 11.4 H, Absolute Lymphs (auto) 1.64, Nucleated RBC % 0 02/03/21 06:26: Sodium 140, Potassium 4.1, Chloride 109 H, Carbon Dioxide 25.0, Anion Gap 6, BUN 10, Creatinine 0.83, Estim Creat Clear Calc 74.11, Est GFR ( RD) Af Amer 117, Est GFR (MDRD) Non-Af 97, BUN/Creatinine Ratio 12.1, Glucose 126 H, Calcium 8.1 L 02/03/21 06:50: POC Glucose 122 H 02/03/21 11:56: POC Glucose 213 H Current Medications Acetaminophen (Acetaminophen 325 Mg Tablet) 650 mg PO Q6H PRN PRN PRN Reason: Pain Score 1-10/Temp > 100.7 F Last Admin: 02/02/21 22:07 Dose: 650 mg Documented by: Albuterol Sulfate (Albuterol 2.5 Mg/3 Ml Vial.Neb.) 2.5 mg INHALATION Q4HWA.RT PRN PRN Reason: WHEEZING Dextrose (Dextrose 50%-Water 25 Gm/50 Ml Disp.Syrin) 0 gm IV X1 PRN; Protocol PRN Reason: Hypoglycemia Enoxaparin Sodium (Enoxaparin 40 Mg/0.4 Ml Syringe) 40 mg SC DAILY [facility] Last Admin: 02/03/21 09:50 Dose: 40 mg Documented by: Glucagon (Glucagon 1 Mg/Ml Syringe) 1 mg IM .X1 PRN PRN Reason: Hypoglycemia Guaifenesin (Guaifenesin 1,200 Mg Tablet) 1,200 mg PO BID [facility] Last Admin: 02/03/21 09:50 Dose: 1,200 mg Documented by: Sodium Chloride () 1,000 mls @ 100 mls/hr IV .Q10H [facility] Last Admin: 02/03/21 06:07 Dose: 100 mls/hr Documented by: Azithromycin 500 mg/ Dextrose 255 mls @ 250 mls/hr IV Q24 [facility] Last Infusion: 02/03/21 11:18 Dose: Infused Documented by: Ceftriaxone Sodium (Rocephin) 1 gm in 50 mls @ 100 mls/hr IV Q24 [facility] Last Infusion: 02/03/21 11:17 Dose: Infused Documented by: Insulin Human Lispro (Insulin Lispro 100 Unit/Ml Insuln.Pen) 0 unit SC [facility]; Protocol Last Admin: 02/03/21 11:58 Dose: 4 units Documented by: Melatonin (Melatonin 3 Mg Tablet) 3 mg PO QHS PRN PRN PRN Reason: INSOMNIA Metoprolol Tartrate (Metoprolol Tartrate 25 Mg Tablet) 25 mg PO BID [facility] Last Admin: 02/03/21 09:57 Dose: 25 mg Documented by: Ondansetron HCl (Ondansetron 4 Mg/2 Ml Vial) 4 mg IV Q8H PRN PRN PRN Reason: NAUSEA/VOMITING Sodium Chloride (0.9% Saline Lock 10 Ml Syringe) 10 - 40 ml IV UD PRN PRN Reason: SALINE FLUSH Last Admin: 02/02/21 11:43 Dose: 10 ml Documented by: STROKE Vital Signs/Narrative: Vital Signs Temp Pulse Resp BP Pulse Ox 02/03/21 10:00 98.9 F 83 18 139/69 H 99 02/03/21 09:57 87 139/69 H Medical Necessity - Tobacco Use Smoking Status: Never smoker Assessment/Plan #Sepsis due to community acquired pneumonia * Is much better today. * BC is down to 14.2. * On IV ceftriaxone and azithromycin. Will continue. * Breathing treatments with bronchodilators. Titrate oxygen to maintain saturation above 90%. * #SVT * Does have a history of chronic SVT and and he was in acute adversity on admission. This resolved with adenosine. * On Lopressor. * #Type 2 diabetes mellitus: Glipizide on hold. Insulin sliding scale. Accuchecks [facility] #DVT Prophylaxis: Lovenox Inpatient E&M: [id number] [facility] Hosp L2
--- NOTE | 2021-02-03 13:39 | NURSING ---
Report obtained from Macie Delgado. This nurse is taking over care for pt.
--- NOTE | 2021-02-03 15:10 | NURSING ---
Pt states he has an upset stomach that he thinks has gotten more continuos and thinks it could be from the lovenox. Pt asked if lovenox could be discontinued. Dr. Rinaldi okay with this and ordered SCD's instead. Mr. Hudson also asked if Dr. Rinaldi would do a repeat of his chest xray tomorrow to see if there is any improvement. Dr. Rinaldi okay with this.
[2021-02-03] MEDS: Ondansetron 4 MG/2 ML Vial IV (15:27)
--- NOTE | 2021-02-03 16:38 | CM.UR ---
RN CM Assessment Introduced role of RN CM to patient.? Patient is alert, oriented and able?to participate in RN CM Assessment. ?Care providers, pharmacy, and demographics verified. Presentation: palpitations Admit Dx: sepsis, CAP Re-Admit: No Barriers/Issues: none PCP: Kelvin Specialists: None Preferred Pharmacy: [facility] Insurance: [facility] Rx Benefit:? Yes ?LNOK: , katia LW/HPOA: states yes, katia. None on file Living Arrangements:? With . No accessibility problems. ADL?s: independent Transportation: self DME: None HHC: none SNF: none Goal: Home denies needs. Patient was kind of upset stating that several of my questions have already been asked by other people. Explained I am just confirming them. States I shouldn't have to. DC PLAN: Home, no needs anticipated. Alerted patient that case management will remain available should any needs arise. Verb understanding. Lon Samuel RN, CCM.
[2021-02-03 17:05] LABS: Bedside Glucose 162 mg/dL (70-110)
--- NOTE | 2021-02-03 18:28 | NURSING ---
Walking in [place] with mask and at this time.
[2021-02-03] MEDS: Ipratropium/Albuterol Sulfate 3 ML AMPUL.NEB INHALATION (19:15)
[2021-02-03] MEDS: Acetaminophen 325 MG Tablet 650 MG PO (23:25)
[2021-02-03 23:41] LABS: Bedside Glucose 192 mg/dL (70-110)
[2021-02-04] VITALS (11 sets, daily range): BP systolic 130–139; BP diastolic 67–68; PULSE 67–82; RESP 14–18; TEMP 36.9–37.1; O2SAT 95–96
[2021-02-04] MEDS: Ipratropium/Albuterol Sulfate 3 ML AMPUL.NEB INHALATION ×3 (03:07→13:13)
[2021-02-04] MEDS: 0.9% Normal Saline 1,000 ML 100 ML IV (04:47)
--- NOTE | 2021-02-04 06:00 | RAD_ITS ---
STUDY: X-RAY CHEST REASON FOR EXAM: Male, 75 years old. pneumonia, to see if there is any improvement. TECHNIQUE: PA and lateral views of the chest. COMPARISON: 02/02/2021 FINDINGS: Increase in alveolar opacities in the right lung consistent with worsening right-sided pneumonia. There is no demonstrated pleural abnormality. Normal size heart. Normal mediastinum and jodi. Normal visualized pulmonary arteries. Normal visualized aortic arch and descending thoracic aorta. Normal visualized thoracic spine. Normal visualized ribs, clavicles, and shoulders. There is no demonstrated abnormality of the visualized soft tissue structures of the upper abdomen. RAD/Chest PA and Lateral IMPRESSION: Worsening right-sided pneumonia. Electronically Signed: Jony Muse MD at 6:41 EDT Tel , Service support ,
[2021-02-04 06:17] LABS: Absolute Lymphocyte Count 1.31 X10^3/uL (0.83-4.51); Absolute Neutrophil Count 6.6 X10^3/uL (2.0-7.7); Basophil# 0.03 X10^3/uL; Basophil% 0.3 % (0-1); Eosinophil# 0.23 X10^3/uL; Eosinophils% 2.6 % (0-5); Hematocrit 34.5 % (40-54); Hemoglobin 10.8 g/dL (13.0-16.5); Lymphocyte # 1.31 X10^3/ul (4.0); Lymphocyte % 14.7 % (19-41); Mean Corp Hgb Conc 31.3 g/dL (32-36); Mean Corpuscular Hgb 26.9 pg (27.0-32.0); Mean Platelet Vol. 9.9 fl (6.2-12.0); Monocyte# 0.65 X10^3/uL; Monocyte% 7.3 % (0-10); NRBC Flagged by Analyzer 0 % (0-5); Neutrophil # 6.63 X10^3/uL (2.7-7.7); Neutrophil % 74.5 % (47-70); Platelet Count 187 K/mm3 (150-450); RBC Distribution Width CV 13.3 % (11.6-14.6); RBC Distribution Width SD 41.8 fl (35.1-43.9); Red Blood Count 4.01 M/mm3 (4.6-6.2); White Blood Count 8.9 K/mm3 (4.4-11.0)
[2021-02-04 06:57] LABS: Anion Gap 8 (5-15); BUN 10 mg/dL (7-18); Calcium,Total 8.1 mg/dL (8.5-10.1); Chloride 112 mmol/L (98-107); Creatinine, Serum 0.71 mg/dL (0.70-1.30); EST Glomerular Filtration Rate 115 mL/min (>60); Est Glom Filt Rate - Afr Amer 139 mL/min (>60); Estimated Creatinine Clearance 61.51 ml/min; Glucose 151 mg/dL (74-106); Potassium 3.8 mmol/L (3.5-5.1); Sodium Level 142 mmol/L (136-145)
[2021-02-04 07:06] LABS: Bedside Glucose 146 mg/dL (70-110)
--- NOTE | 2021-02-04 08:59 | DCINST_ITS ---
You will use the following diet at home:: Cardiac Your food should be the consistency of: Regular Your liquids should be the consistency of: Regular/Thin Discharge Activity: Return to Normal Activity Weight Bearing Status: Weight bearing as tolerated Call your doctor if you observe: Fever of 101 or Higher, Shortness of breath, Dizziness, Fainting spells, Swelling in the ankles, Increased palpitations (irregular heartbeat) Instructions: What Is Pneumonia? Allergies/Adverse Reactions: Allergies No Known Allergies Allergy (Verified 02/02/21 05:08) Medications to take at Discharge Cholecalciferol (VIT D3) [Vitamin D3] 2,000 unit PO DAILY 02/28/16 Multivitamin [Daily Multiple Vitamin] 1 each PO DAILY 02/28/16 Codeine Phosphate/Guaifenesin [Codeine-Guaifen 10-100 mg/5 ml] 10 ml PO Q4H PRN PRN 02/07/19 metoprolol tartrate 25 mg tablet 25 mg PO BID #180 tab 05/03/19 Glipizide [Glipizide ER] 5 mg PO DAILY 02/02/21 levoFLOXacin tablet [Levaquin tablet] 750 mg PO DAILY #7 tab 02/04/21 The following prescriptions were given: levoFLOXacin tablet [Levaquin tablet] 750 mg PO DAILY #7 tab Transmission Status: Pending to [facility]/pharmacy #[id number] Primary Care Physician: Homero Warren DO [Primary Care Provider] - Please follow up with your Primary Care Physician in: within one week Test Results: Test results from this visit will be discussed in further detail at your follow- up appointment, if applicable. Proposed Discharge Date: 02/04/21
--- NOTE | 2021-02-04 09:00 | PCM.DC.SUM ---
Discharge Date and Diagnosis Date of Admission: 02/02/21 Date of Discharge: 02/04/21 - Primary Discharge Diagnosis Acute Problems: COmmunity acquired pneumonia SVT - Secondary Discharge Diagnosis Chronic Problems: Chronic Problems (Last Reviewed 02/17/18 @ 14:09 by Jessy Hernández) Supraventricular tachycardia (Chronic) Hypertension (Chronic) Hospital Course and Treatment Imaging Results: Diagnostic Data Chest CTA 02/02/21 05:52 IMPRESSION: Infiltrate in the posterior segment of the right upper lobe as well as in the right middle lobe and right lower minimal increased markings at the left lung base. No evidence of pulmonary embolism. Fatty infiltration of the liver. Electronically Signed: Jaylan Lewis MD at 8:08 EDT , Service support , Chest X-Ray 02/04/21 06:00 IMPRESSION: Worsening right-sided pneumonia. Electronically Signed: Jony Muse MD at 6:41 EDT Tel , Service support , Operations: None Procedures: None Summary of Care Provided: The patient is a 75 year old M with a past medical history as outlined was admitted through the ED on 02/02/2021 with a complaint plaint of chest tightness and palpitations. On arrival in the ED, he was noted to be in SVT with heart rate in the 140s. Of note, patient does have a history of chronic SVT. SVT resolved with administration of 2 doses of adenosine. He was also given IV Lopressor. He had not taken his morning dose of metoprolol on the day he presented and also complained of cough and chills and had generally not been feeling well for several days. Chest x-ray showed right greater than left infiltrate and CTA of the chest showed a right mid to lower lobe and right upper lobe infiltrate without any evidence of PE. WBC was also elevated at 15.1. Covid test was negative and of note, patient had been fully vaccinated. He was admitted admitted for SVT and community-acquired pneumonia. His metoprolol was resumed and heart rate remained well controlled. He was started on IV ceftriaxone and azithromycin. White cell count trended down and normalized. Patient remained stable and was discharged home on 02/04/2021. He is to follow-up with his primary care doctor within 1 week. He was discharged on p.o. Levaquin 750 mg daily for 7 days. Patient seen and examined prior to discharge. He had no complaints. Review of systems otherwise negative. Labs and vitals reviewed. Home medication reviewed and reconciled. O/E: Vital Signs Temp Pulse Resp BP Pulse Ox 98.8 F 68 16 139/67 H 95 02/04/21 08:26 02/04/21 13:16 02/04/21 13:16 02/04/21 09:33 02/04/21 08:26 [] General: Alert, Oriented x3, Cooperative HEENT: Atraumatic, PERRLA, EOMI, Normocephalic Oral: Moist Mucosa Neck: Supple, No JVD, Negative Carotid Bruits Lungs: - - diminished breath sounds bibasally, with few crackles in right lower lung wells. On room air. Cardiovascular: Regular rate, No murmurs Abdomen: Bowel Sounds Present, Soft, Non Tender Extremities: No edema, Capillary Refill Less than 3 Seconds Skin: No rashes, No breakdown Musculoskeletal: No Tenderness to Palpation of Joints or Extremities Neurological: Cranial nerves II-XII grossly intact Psych/Mental Status: Normal Affect, Appropriate, Alert and oriented to time, place, person, mood and affect Plan is for discharge home today. - Physical Exam Vitals/I&O's: Vital Signs Temp Pulse Resp BP Pulse Ox 98.4 F 72 16 130/68 H 96 02/04/21 02:48 02/04/21 07:51 02/04/21 07:51 02/04/21 02:48 02/04/21 04:00 Oxygen Delivery Method Room Air Weight: 179 lb 14.355 oz Body Mass Index (BMI) 28.1 Intake and Output for Last 24 Hours 02/02/21 02/03/21 02/04/21 23:59 23:59 23:59 Intake Total 2735 / 2935 2745 / 3045 1500 / 1500 Balance 2735 / 2935 2745 / 3045 1500 / 1500 Microbiology Past 72 Hours 02/02/21 06:15 Blood Culture (Wb) - Left Hand Blood Culture - Preliminary No growth in 48 hours. 02/02/21 06:00 Blood Culture (Wb) - Anticubital Right Blood Culture - Preliminary No growth in 48 hours. 02/02/21 15:40 Sputum, Expectorated/Coughed Gram Stain - Final 02/02/21 15:40 Sputum, Expectorated/Coughed Respiratory Culture - Preliminary Appears to be normal respiratory yoni. Further studies to follow. 02/02/21 13:20 Urine, Clean Catch Streptococcus pneumoniae Antigen (M - Final 02/02/21 13:20 Urine, Clean Catch Legionella Antigen - Final 02/02/21 08:30 Mucosa - Nose SARS-CoV-2 Antigen (Rapid) - Final Laboratory Results 02/03/21 11:56: POC Glucose 213 H 02/03/21 16:54: POC Glucose 162 H 02/03/21 23:22: POC Glucose 192 H 02/04/21 05:15: WBC 8.9, RBC 4.01 L, Hgb 10.8 L, Hct 34.5 L, MCV 86.0, MCH 26.9 L, MCHC 31.3 L, RDW Std Deviation 41.8, RDW Coeff of Rg 13.3, Plt Count 187, MPV 9.9, Immature Gran % (Auto) 0.600, Neut % (Auto) 74.5 H, Lymph % (Auto) 14.7 L, [place] % (Auto) 7.3, Eos % (Auto) 2.6, Baso % (Auto) 0.3, Absolute Neuts (auto) 6.6, Absolute Lymphs (auto) 1.31, Nucleated RBC % 0 02/04/21 05:15: Sodium 142, Potassium 3.8, Chloride 112 H, Carbon Dioxide 22.0, Anion Gap 8, BUN 10, Creatinine 0.71, Estim Creat Clear Calc 61.51, Est GFR (MDRD) Af Amer 139, Est GFR (MDRD) Non-Af 115, BUN/Creatinine Ratio 14.0, Glucose 151 H, Calcium 8.1 L 02/04/21 06:57: POC Glucose 146 H Current Medications Acetaminophen (Acetaminophen 325 Mg Tablet) 650 mg PO Q6H PRN PRN PRN Reason: Pain Score 1-10/Temp > 100.7 F Last Admin: 02/03/21 23:25 Dose: 650 mg Documented by: Albuterol/Ipratropium (Ipratropium/Albuterol Sulfate 3 Ml Ampul.Neb) 3 ml INHALATION Q6H.RT [facility] Last Admin: 02/04/21 07:52 Dose: 3 ml Documented by: Dextrose (Dextrose 50%-Water 25 Gm/50 Ml Disp.Syrin) 0 gm IV X1 PRN; Protocol PRN Reason: Hypoglycemia Glucagon (Glucagon 1 Mg/Ml Syringe) 1 mg IM .X1 PRN PRN Reason: Hypoglycemia Guaifenesin (Guaifenesin 1,200 Mg Tablet) 1,200 mg PO BID [facility] Last Admin: 02/03/21 23:26 Dose: 1,200 mg Documented by: Sodium Chloride () 1,000 mls @ 100 mls/hr IV .Q10H [facility] Last Admin: 02/04/21 04:47 Dose: 100 mls/hr Documented by: Azithromycin 500 mg/ Dextrose 255 mls @ 250 mls/hr IV Q24 [facility] Last Infusion: 02/03/21 11:18 Dose: Infused Documented by: Ceftriaxone Sodium (Rocephin) 1 gm in 50 mls @ 100 mls/hr IV Q24 [facility] Last Infusion: 02/03/21 11:17 Dose: Infused Documented by: Insulin Human Lispro (Insulin Lispro 100 Unit/Ml Insuln.Pen) 0 unit SC ACHS [facility]; Protocol Last Admin: 02/04/21 07:01 Dose: Not Given Documented by: Melatonin (Melatonin 3 Mg Tablet) 3 mg PO QHS PRN PRN PRN Reason: INSOMNIA Metoprolol Tartrate (Metoprolol Tartrate 25 Mg Tablet) 25 mg PO BID [facility] Last Admin: 02/03/21 23:26 Dose: 25 mg Documented by: Ondansetron HCl (Ondansetron 4 Mg/2 Ml Vial) 4 mg IV Q8H PRN PRN PRN Reason: NAUSEA/VOMITING Last Admin: 02/03/21 15:27 Dose: 4 mg Documented by: Sodium Chloride (0.9% Saline Lock 10 Ml Syringe) 10 - 40 ml IV UD PRN PRN Reason: SALINE FLUSH Last Admin: 02/02/21 11:43 Dose: 10 ml Documented by: Discharge Diet: Low fat/ Low Cholesterol Discharge Activity: Return to Normal Activity Weight Bearing Status: Weight bearing as tolerated Call your doctor if you observe: Fever of 101 or Higher, Shortness of breath, Dizziness, Fainting spells, Swelling in the ankles, Increased palpitations (irregular heartbeat) Home Medications: Medications to take at Discharge Cholecalciferol (VIT D3) [Vitamin D3] 2,000 unit PO DAILY 02/28/16 Multivitamin [Daily Multiple Vitamin] 1 each PO DAILY 02/28/16 Codeine Phosphate/Guaifenesin [Codeine-Guaifen 10-100 mg/5 ml] 10 ml PO Q4H PRN PRN 02/07/19 metoprolol tartrate 25 mg tablet 25 mg PO BID #180 tab 05/03/19 Glipizide [Glipizide ER] 5 mg PO DAILY 02/02/21 levoFLOXacin tablet [Levaquin tablet] 750 mg PO DAILY #7 tab 02/04/21 Following Prescriptions Were Given to Patient: levoFLOXacin tablet [Levaquin tablet] 750 mg PO DAILY #7 tab Transmission Status: Received by [facility]/pharmacy #[id number] Primary Care Physician: Homero Warren DO [Primary Care Provider] - Please follow up with your Primary Care Physician in: within one week Patient Instructions: What Is Pneumonia? Disposition: Home Minutes spent on discharge:: 45 Patient Condition:: Stable Medical Necessity - Tobacco Use Smoking Status: Never smoker Meaningful Use Info Meaningful Use Diagnoses (Choose all that apply): None applicable Inpatient E&M: 83571 Disch Hosp
[2021-02-04] MEDS: Ceftriaxone 1 GM/50 ML BAG IV (09:32)
[2021-02-04] MEDS: guaiFENesin 1,200 MG Tablet 1200 MG PO (09:33)
[2021-02-04] MEDS: Metoprolol Tartrate 25 MG Tablet PO (09:33)
[2021-02-04 12:00] LABS: Bedside Glucose 357 mg/dL (70-110)
--- NOTE | 2021-02-04 13:44 | NURSING ---
all care, documentation, and medication administration completed by Shaneka Arvizu, student nurse, on 02/04/2021 done under the supervision of this RN.
--- NOTE | 2021-02-05 14:51 | CASEMGMT ---
HEATHER SANDY Discharge Follow-up Phone Call: JUVENAL: Jean Carlos Strata: 3 Call Date: 02/05/21 Discharge Date: 02/04/21 Time of Call: 1450 Duration: 5 min Admitting Diagnosis: SVT and sepsis pneumonia HEATHER SANDY completed follow-up phone call after recent hospitalization. Patient states he is doing well, has some coughing at time. Patient had no questions or concerns regarding discharge instructions. Patient was able to fill prescription without any issues. Patient is going to schedule PCP appt. Patient had no further questions or concerns at this time.
== END 2021-02-04 13:33 | disposition home or self-care (01) | DRG 194 ==
LOC: ED 05:26 → PCU 11:01
PROVIDERS: Admitting Provider Family Medicine; Emergency Provider Emergency Medicine; PCP Family Medicine; Visit Provider Student in an Organized Health Care Education/Training Program
DX: J18.9 Pneumonia, unspecified organism (principal); I47.1 Supraventricular tachycardia; E11.9 Type 2 diabetes mellitus without complications; Z79.84 Long term (current) use of oral hypoglycemic drugs
CPT/HCPCS: 36415; 71045; 71046; 71275; 80048; 82962; 83605; 84484; 85025; 87040; 87070; 87205; 87426; 87449; 93005; 94640; 99285; J7030; Q9967; A4216; J0153; J2405

== ENCOUNTER → 2021-09-04 15:30 | Outpatient (CLI) | payer MEDICARE, SELFPAY ==
[2021-09-04 18:27] LABS: PSA,Total- Diagnostic 0.43 ng/mL (0.0-4.0)
== END ==
PROVIDERS: PCP Family Medicine; Referring Provider Urology; Visit Provider Urology
DX: C61 Malignant neoplasm of prostate (principal)
CPT/HCPCS: 36415; 84153

== ENCOUNTER → 2021-10-25 06:51 | Outpatient (CLI) | payer MEDICARE, SELFPAY ==
[2021-10-25 07:40] LABS: Absolute Lymphocyte Count 1.68 X10^3/uL (0.83-4.51); Absolute Neutrophil Count 3.4 X10^3/uL (2.0-7.7); Basophil# 0.03 X10^3/uL; Basophil% 0.5 % (0-1); Eosinophil# 0.22 X10^3/uL; Eosinophils% 3.8 % (0-5); Hematocrit 41.3 % (40-54); Hemoglobin 13.9 g/dL (13.0-16.5); Lymphocyte # 1.68 X10^3/ul (0.83-4.51); Lymphocyte % 28.9 % (19-41); Mean Corp Hgb Conc 33.7 g/dL (32-36); Mean Corpuscular Volume 83.1 fL (80-94); Mean Platelet Vol. 9.7 fl (6.2-12.0); Monocyte# 0.52 X10^3/uL; Monocyte% 8.9 % (0-10); NRBC Flagged by Analyzer 0 % (0-5); Neutrophil # 3.36 X10^3/uL (2.7-7.7); Neutrophil % 57.7 % (47-70); Platelet Count 240 K/mm3 (150-450); RBC Distribution Width CV 13.1 % (11.6-14.6); RBC Distribution Width SD 39.7 fl (35.1-43.9); Red Blood Count 4.97 M/mm3 (4.6-6.2); White Blood Count 5.8 K/mm3 (4.4-11.0)
[2021-10-25 08:01] LABS: Microalbumin,Random Urine 16.1 mg/L (NO RANGE EST.); Microalbumin:Creatinine Ratio 8.5 mg/g CRE (<30 mg/g CRE)
[2021-10-25 08:23] LABS: ALB/GLOB Ratio 0.8 RATIO (0.9-2.4); AST(SGOT) 21 U/L (15-37); Alanine Aminotransfer ALT/SGPT 42 U/L (16-61); Albumin, Serum 3.3 g/dL (3.2-5.0); Alkaline Phosphatase 105 U/L (45-117); Anion Gap 6 (5-15); BUN 18 mg/dL (7-18); BUN/Creat Ratio 19.6 RATIO (10-20); Chloride 104 mmol/L (98-107); Cholesterol 166 mg/dL (200); Creatinine, Serum 0.92 mg/dL (0.70-1.30); EST Glomerular Filtration Rate 86 mL/min (>60); Est Glom Filt Rate - Afr Amer 104 mL/min (>60); Globulin 4.1 g/dL (2.2-4.2); Glucose 242 mg/dL (74-106); High Density Lipoprotein 60 mg/dL; Potassium 4.1 mmol/L (3.5-5.1); Protein, Total 7.4 g/dL (6.4-8.2); Sodium Level 137 mmol/L (136-145); Thyroid Stim Hormone (TSH) 1.34 uIU/mL (0.358-3.74); Triglycerides 104 mg/dL; Very Low Density Lipoprotein 21 mg/dL (5-40)
== END ==
PROVIDERS: PCP Family Medicine; Referring Provider Family Medicine; Visit Provider Family Medicine
DX: E11.9 Type 2 diabetes mellitus without complications (principal); E04.2 Nontoxic multinodular goiter; D64.9 Anemia, unspecified
CPT/HCPCS: 36415; 80053; 80061; 82043; 82570; 83036; 84443; 85025

== ENCOUNTER 2022-03-28 10:44 | Emergency (ER) | payer MEDICARE, SELFPAY ==
[2022-03-28 10:45] VITALS: BP 154/68; PULSE 103; RESP 18; TEMP 36.4; O2SAT 100; BMI 25.8
--- NOTE | 2022-03-28 11:02 | EDS_ITS ---
HPI HPI - URI History of Present Illness Chief Complaint: Cough Informant: patient Onset/Context/Timing Onset: Days (2) Context: Gradual Onset Quality: FINANCE ANALYST cough Current Severity: Mild Maximum Severity: Mild Associated Symptoms Associated Symptoms: Positive for Nasal Congestion and - (Sneezing a lot) Narrative Narrative: Patient states he just got back from [place] [employer] [place] in [place] and he has been coughing, congestion, body aches for the last 2 days, and sneezing a lot with watery eyes and thinks may be this is allergies. He feels like he has some chest congestion and so presents for evaluation. He was vacci nated against COVID, and had his booster. Never had COVID. No exposure to COVID that he knows of recently or any other illness that he knows of for sure. ROS ROS ED Constitutional Constitutional ED: Reports body ache(s); Denies chills or fever(s) ENT ENT ED: Reports nasal congestion, rhinorrhea and sore throat Cardiovascular Cardiovascular: Denies chest pain or palpitations Respiratory/Chest Respiratory/Chest: Reports chest congestion and cough; Denies dyspnea Gastrointestinal Gastrointestinal: Denies abdominal pain, diarrhea, nausea or vomiting Genitourinary Genitourinary ED: Denies dysuria or hematuria Musculoskeletal Musculoskeletal: Denies myalgias or neck pain Integumentary Denies abscess or rash Neurologic Neurologic: Denies headache(s), paresthesias or weakness Psychiatric Psychiatric: Denies depression or suicidal thoughts Endocrine Endocrinology: Denies polydipsia or polyuria [facility] Medical History (Updated 03/28/22 @ 12:[address] Alex Martines MD) Goiter Hypertension Prostate cancer Supraventricular tachycardia Type 2 diabetes mellitus without complications Home Medications cholecalciferol (vitamin D3) [Vitamin D3] 2,000 unit PO DAILY 02/28/16 [History Last Taken 02/01/21] multivitamin [Daily Multiple] 1 ea PO DAILY 02/28/16 [History Last Taken 02/01/21] codeine-guaifenesin 10 ml PO Q4H PRN PRN 02/07/19 [History Last Taken 02/01/21] metoprolol tartrate 25 mg tablet 25 mg PO BID #180 tab 05/03/19 [Rx Last Taken 02/01/21] glipizide 5 mg PO DAILY 02/02/21 [History Last Taken 02/01/21] levofloxacin 750 mg PO DAILY #7 tab 02/04/21 [Rx Last Taken Unknown] benzonatate 200 mg PO TID PRN #30 cap 03/28/22 [Rx Last Taken Unknown] cetirizine [Zyrtec] 10 mg PO DAILY #30 tab 03/28/22 [Rx Last Taken Unknown] olopatadine [Pataday Once Daily Relief] 1 drp EACH EYE DAILY PRN #2.5 ml 03/28/22 [Rx Last Taken Unknown] Allergy/AdvReac Type Severity Reaction Status Date / Time No Known Allergies Allergy Verified 03/28/22 10:47 Family History Mother Hypertension Sister Hypertension Diabetes Father Kidney disease Surgical History excision pigmented skin lesion (~10/2012) S/P thyroid biopsy (~05/2017) Social History Smoking Status: Never smoker EXAM Physical Exam Const Vital Signs: 03/28/22 10:45 03/28/22 12:03 Temperature 97.5 F L Temperature Source Temporal Pulse Rate 103 H Respiratory Rate 18 Respiratory Effort Normal Non-Labored Respiratory Depth Normal Respiratory Pattern Normal Blood Pressure 154/68 H Blood Pressure Mean 96 Pulse Ox 100 Oxygen Delivery Method Room Air Positive well nourished and well developed General Appearance ED: well developed and NAD HEENT Reports moist mucous membranes normocephalic and atraumatic Throat: Negative for posterior oropharynx abnormal Eyes PERRL and EOMs intact bilaterally Neck no lymphadenopathy, supple and no meningeal signs Resp normal respiratory effort and clear to auscultation bilaterally Cardio no murmurs Rate: regular rate; Negative for tachycardic Rhythm: regular rhythm GI normal to inspection, nondistended, normoactive bowel sounds, soft to palpation and non-tender Extremity normal to inspection, full ROM, no calf tenderness and no pedal edema Neuro oriented x3, CN's II-XII intact bilaterally and no sensory deficits noted Sensorium / Orientation: alert Motor Exam: strength 5/5 throughout Skin Lesions: no lesions Rashes: no rashes MDM MDM MDM Narrative Medical decision making narrative: Chest x-ray is normal, COVID and influenza rapid swabs are both negative. Patient's vital signs are unremarkable, he does not have tachycardia on exam, he is saturating at 100% on room air, and his lungs are clear. I think it would be reasonable to treat him for allergies and he is amenable to that, but he want something for the cough as well. Prescribed Tessalon, Zyrtec, and Pataday eyedrops. Radiography Chest X-Ray - ED: 2 View, Read by ED Physician, No Acute Disease and No Infiltrates Diagnostic Testing: Clinical Impression(s) from Imaging Studies Chest X-Ray 03/28/22 11:10 IMPRESSION: No acute abnormality seen. Electronically Signed: Jaylan Lewis MD at 11:52 EDT , Discharge Plan Triage Chief Complaint: Cough ED Provider: Alex Martines Dx/Rx/DC Orders Clinical Impression: Allergic rhinitis, Chesty cough, Acute allergic conjunctivitis of both eyes Instructions: ED Allergic Rhinitis Prescriptions: New benzonatate 200 mg capsule 200 mg PO TID PRN (Reason: cough) Qty: 30 RF: 0 cetirizine [Zyrtec] 10 mg tablet 10 mg PO DAILY Qty: 30 RF: 0 olopatadine [Pataday Once Daily Relief] 0.2 % drops 1 drp EACH EYE DAILY PRN (Reason: itching) Qty: 2.5 RF: 0 No Action multivitamin [Daily Multiple] 1 EACH tablet 1 ea PO DAILY RF: 0 cholecalciferol (vitamin D3) [Vitamin D3] 1,000 UNIT tablet 2,000 unit PO DAILY RF: 0 codeine-guaifenesin 120 ML liquid 10 ml PO Q4H PRN PRN (Reason: Cough) RF: 0 glipizide 5 MG tablet extended release 24hr 5 mg PO DAILY RF: 0 levofloxacin 750 MG tablet 750 mg PO DAILY Qty: 7 RF: 0 metoprolol tartrate 25 mg tablet 25 mg PO BID Qty: 180 RF: 3 Primary Care Provider: Homero Warren Referrals: Homero Warren, [Primary Care Provider] - Disposition Disposition: Home, Self Care
--- NOTE | 2022-03-28 11:10 | RAD_ITS ---
STUDY: X-RAY CHEST REASON FOR EXAM: Male, 76 years old. Cough, chest congestion TECHNIQUE: PA and lateral views of the chest. COMPARISON: Comparison is made with prior study dated 02/04/2021. FINDINGS: The lungs are clear and expanded. There is no demonstrated pleural abnormality. Normal size heart. Normal mediastinum and jodi. Normal visualized pulmonary arteries. There is atherosclerotic tortuosity of the aortic arch and descending thoracic aorta. There are diffuse degenerative changes of the visualized thoracic spine. Normal visualized ribs, clavicles, and shoulders. There is no demonstrated abnormality of the visualized soft tissue structures of the upper abdomen. RAD/Chest PA and Lateral IMPRESSION: No acute abnormality seen. Electronically Signed: Jaylan Lewis MD at 11:52 EDT ,
[2022-03-28] MEDS: Loratadine 10 MG Tablet PO (13:06)
[2022-03-28] MEDS: Benzonatate 100 MG Capsule 200 MG PO (13:06)
== END 2022-03-28 13:10 | disposition home or self-care (01) ==
PROVIDERS: Emergency Provider Emergency Medicine; PCP Family Medicine; Visit Provider Emergency Medicine
DX: J30.9 Allergic rhinitis, unspecified (principal); E11.9 Type 2 diabetes mellitus without complications; I10 Essential (primary) hypertension; H10.13 Acute atopic conjunctivitis, bilateral; Z79.899 Other long term (current) drug therapy
CPT/HCPCS: 71046; 87428; 99283

== ENCOUNTER → 2022-09-05 | Outpatient (CLI) | payer MEDICARE, SELFPAY ==
[2022-09-05 11:39] LABS: PSA,Total- Diagnostic 0.43 ng/mL (0.0-4.0)
== END | disposition home or self-care (01) ==
PROVIDERS: PCP Family Medicine; Referring Provider Urology; Visit Provider Family Medicine
DX: C61 Malignant neoplasm of prostate (principal); E11.9 Type 2 diabetes mellitus without complications; E04.2 Nontoxic multinodular goiter; Z51.81 Encounter for therapeutic drug level monitoring
CPT/HCPCS: 36415; 84153

== ENCOUNTER → 2022-10-15 | Outpatient (CLI) | payer MEDICARE, SELFPAY ==
[2022-10-15 09:45] LABS: Hematocrit 40.9 % (40-54); Hemoglobin 12.7 g/dL (13.0-16.5); Mean Corp Hgb Conc 31.1 g/dL (32-36); Mean Corpuscular Hgb 26.4 pg (27.0-32.0); Mean Platelet Vol. 10.2 fl (6.2-12.0); Platelet Count 272 K/mm3 (150-450); RBC Distribution Width CV 12.7 % (11.6-14.6); Red Blood Count 4.81 M/mm3 (4.6-6.2)
[2022-10-15 10:09] LABS: Anion Gap 8 (5-15); BUN 18 mg/dL (7-18); BUN/Creat Ratio 21.1 RATIO (10-20); Calcium,Total 8.9 mg/dL (8.5-10.1); Chloride 100 mmol/L (98-107); Creatinine, Serum 0.85 mg/dL (0.70-1.30); EST Glomerular Filtration Rate 93 mL/min (>60); Est Glom Filt Rate - Afr Amer 112 mL/min (>60); Glucose 340 mg/dL (74-106); Potassium 4.2 mmol/L (3.5-5.1); Sodium Level 136 mmol/L (136-145)
== END | disposition home or self-care (01) ==
LOC: PSN 08:21
PROVIDERS: PCP Family Medicine; Referring Provider Urology; Visit Provider Urology
DX: Z01.812 Encounter for preprocedural laboratory examination (principal); Z01.810 Encounter for preprocedural cardiovascular examination
CPT/HCPCS: 36415; 80048; 85027; 93005

== ENCOUNTER → 2022-10-18 | Outpatient (CLI) | payer MEDICARE, SELFPAY ==
--- NOTE | 2022-10-18 | FOR_PTH ---
PATIENT: JASS ABBASI LOC: [facility] U#:[id number] AGE/SX: 77/M ROOM: RE10/18/[address]: Dr. Efraín Milner MD : 1945 BED: DIS: 10/18/2022 SPEC #: [id number] RECD: 10/18/22 15:00 STATUS: [place] AKIN #: [id number] KENDALL: 10/18/22 00:[address]: Efraín Milner DEPT: SURGICAL PATHOLOGY RECD BY: Mika Gallardo ENTERED: 10/21/22 10:00 SP TYPE: FORESKIN OTHR DR: Dr. Homero Warren, [facility] Tissues: Skin of foreskin, NOS Procedures: Surgery Specimen Level IV HEADER OPERATION: Circumcision PRE-OP DIAGNOSIS: Phimosis TISSUE SUBMITTED: Foreskin MICROSCOPIC DIAGNOSIS Foreskin, circumcision: Consistent with balanitis. AM:imelda 10/22/2022 MICROSCOPIC DESCRIPTION Slides are reviewed. GROSS DESCRIPTION Received in fixative is one container labeled with the patient's name and designated foreskin. The specimen consists of two dark blount fragments of excised skin measuring in aggregate 3.5 x 3 x 1 cm. No mass lesions are identified. Free Lance Artist sections are submitted in one cassette. / AM:imelda 10/21/2022 TC:3 CPT: 60922
== END | disposition home or self-care (01) ==
LOC: LABSPEC 16:33
PROVIDERS: PCP Family Medicine; Visit Provider Urology
DX: N47.1 Phimosis (principal)
CPT/HCPCS: 88304; 88305

== ENCOUNTER → 2023-04-29 | Outpatient (CLI) | payer MEDICARE, SELFPAY | END | disposition home or self-care (01) | LOC: LAB 13:43 | PROVIDERS: PCP Family Medicine; Referring Provider Urology; Visit Provider Urology | DX: C61 Malignant neoplasm of prostate (principal) | CPT/HCPCS: 36415; 84153 ==

== ENCOUNTER → 2023-08-01 | Outpatient (CLI) | payer MEDICARE, SELFPAY ==
[2023-08-01 07:34] LABS: Absolute Neutrophil Count 3.7 X10^3/uL (2.0-7.7); Basophil# 0.04 X10^3/uL; Basophil% 0.6 % (0-1); Eosinophil# 0.37 X10^3/uL; Eosinophils% 5.1 % (0-5); Hematocrit 43.2 % (40-54); Hemoglobin 13.7 g/dL (13.0-16.5); Lymphocyte % 34.5 % (19-41); Mean Corp Hgb Conc 31.7 g/dL (32-36); Mean Corpuscular Hgb 27.2 pg (27.0-32.0); Mean Corpuscular Volume 85.7 fL (80-94); Mean Platelet Vol. 9.9 fl (6.2-12.0); Monocyte# 0.57 X10^3/uL; Monocyte% 7.9 % (0-10); NRBC Flagged by Analyzer 0 % (0-5); Neutrophil # 3.74 X10^3/uL (2.7-7.7); Neutrophil % 51.6 % (47-70); Platelet Count 271 K/mm3 (150-450); RBC Distribution Width SD 43.8 fl (35.1-43.9); Red Blood Count 5.04 M/mm3 (4.6-6.2); White Blood Count 7.2 K/mm3 (4.4-11.0)
[2023-08-01 08:28] LABS: ALB/GLOB Ratio 0.9 RATIO (0.9-2.4); AST(SGOT) 16 U/L (15-37); Alanine Aminotransfer ALT/SGPT 27 U/L (16-61); Albumin, Serum 3.6 g/dL (3.2-5.0); Alkaline Phosphatase 84 U/L (45-117); Anion Gap 5 (5-15); BUN 15 mg/dL (7-18); BUN/Creat Ratio 15.5 RATIO (10-20); Calcium,Total 9.2 mg/dL (8.5-10.1); Chloride 106 mmol/L (98-107); Cholesterol 164 mg/dL (200); Creatinine, Serum 0.97 mg/dL (0.70-1.30); EST Glomerular Filtration Rate 80 mL/min (>60); Est Glom Filt Rate - Afr Amer 97 mL/min (>60); Glucose 171 mg/dL (74-106); High Density Lipoprotein 60 mg/dL; Protein, Total 7.6 g/dL (6.4-8.2); Sodium Level 137 mmol/L (136-145); T4 Free Direct 1.23 ng/dL (0.76-1.46); Thyroid Stim Hormone (TSH) 1.79 uIU/mL (0.358-3.74); Triglycerides 112 mg/dL; Very Low Density Lipoprotein 22 mg/dL (5-40)
[2023-08-01 09:31] LABS: Hemoglobin A1c 8.2 % (3.8-5.6)
== END | disposition home or self-care (01) ==
LOC: LAB 06:58
PROVIDERS: PCP Family Medicine; Referring Provider Family Medicine; Visit Provider Family Medicine
DX: E11.9 Type 2 diabetes mellitus without complications (principal); I47.1 Supraventricular tachycardia; E01.0 Iodine-deficiency related diffuse (endemic) goiter
CPT/HCPCS: 36415; 80053; 80061; 83036; 84439; 84443; 85025

== ENCOUNTER 2023-11-12 12:59 | Emergency (ER) | payer MEDICARE, SELFPAY ==
[2023-11-12 13:00] VITALS: BP 159/58; PULSE 75; RESP 18; TEMP 35.9; O2SAT 97; BMI 27.6
--- NOTE | 2023-11-12 13:35 | RAD_ITS ---
STUDY: X-RAY - RIGHT KNEE REASON FOR EXAM: Male, 78 years old. RIGHT KNEE PAIN TECHNIQUE: 5 view(s) of the knee. COMPARISON: None. FINDINGS: Normal visualized distal femur. Normal visualized proximal tibia and fibula. Normal proximal tibiofibular articulation. Normal medial femorotibial compartment. Normal lateral femorotibial compartment. Normal patellofemoral articulation. The soft tissue structures are unremarkable. RAD/Knee 4 or More Views IMPRESSION: No evidence of acute fracture or dislocation. Electronically Signed: Bharath Chavez DO at 13:54 EST ,
[2023-11-12 16:59] VITALS: PULSE 66; RESP 16; O2SAT 100
--- NOTE | 2023-11-12 16:59 | ED.VIS.LOWEX ---
HPI <JOSESITO Vazquez - Last Filed: 11/12/23 18:06> History of Present Illness Chief Complaint: Lower Extremity Injury Narrative Narrative: 78-year-old male has had a few days of right hip pain that radiates through the front of the thigh to the knee. It hurts especially with hip flexion and has had to manually lift his leg to get into his van and drive. He denies fall or injury. He has no back pain. He states sometimes his right foot tingles. He has no saddle anesthesia or bladder or bowel incontinence. [facility] <JOSESITO Vazquez - Last Filed: 11/12/23 18:06> [facility] Medical History (Updated 11/12/23 @ 17:59 by JOSESITO Vazquez) Goiter Hypertension Prostate cancer Supraventricular tachycardia Type 2 diabetes mellitus without complications Home Medications cholecalciferol (vitamin D3) 25 mcg (1,000 unit) tablet (Vitamin D3) 2,000 unit PO DAILY vitamin 02/28/16 [History Last Taken 02/01/21] multivitamin (Daily Multiple tablet) 1 ea PO DAILY vitamin 02/28/16 [History Last Taken 02/01/21] codeine 10 mg-guaifenesin 100 mg/5 mL oral liquid 10 ml PO Q4H PRN PRN Cough 02/07/19 [History Last Taken 02/01/21] metoprolol tartrate 25 mg tablet 25 mg PO BID ##180 05/03/19 [Rx Last Taken 02/01/21] glipizide 5 mg tablet, extended release 24 hr 5 mg PO DAILY diabetes 02/02/21 [History Last Taken 02/01/21] levofloxacin 750 mg tablet 750 mg PO DAILY #7 TABLETS 02/04/21 [Rx Last Taken Unknown] benzonatate 200 mg capsule 200 mg PO TID PRN cough #30 caps 03/28/22 [Rx Last Taken Unknown] cetirizine 10 mg tablet (Zyrtec) 10 mg PO DAILY #30 tabs 03/28/22 [Rx Last Taken Unknown] olopatadine 0.2 % eye drops (Pataday Once Daily Relief) 1 drp EACH EYE DAILY PRN itching #2.5 mL 03/28/22 [Rx Last Taken Unknown] Allergy/AdvReac Type Severity Reaction Status Date / Time No Known Allergies Allergy Verified 11/12/23 13:00 Family History Mother Hypertension Sister Hypertension Diabetes Father Kidney disease Surgical History excision pigmented skin lesion (~10/2012) S/P thyroid biopsy (~05/2017) Social History Smoking Status: Never smoker ROS <JOSESITO Vazquez - Last Filed: 11/12/23 18:06> ROS ED ROS Narrative Constitutional: Negative for fever, chills, malaise. CVS: Negative for chest pain. Respiratory: Negative for shortness of breath. Neuro: Negative for motor/sensory dysfunction. Musc: Positive for right hip pain. EXAM <JOSESITO Vazquez - Last Filed: 11/12/23 18:06> Physical Exam Narrative Exam Narrative: CONST: Patient sitting in no acute distress. EYES: Normal inspection. NECK: Normal inspection. RESP: No respiratory distress, CTAB. CVS: Regular rate and rhythm, no murmur, no gallop. Back: Normal inspection, no midline tenderness or step-offs. SKIN: Color normal, no rash, warm, dry, intact. EXTREMITIES: Normal appearance of bilateral lower extremities. Tender over right proximal anterior quadricep. No bony tenderness. He has pain with hip flexion but no pain with logroll. No shortening or rotation. 5/5 strength in bilateral hip flexion, knee flexion/extension, DF/PF. Sensation intact in all dermatomes. 2+ patellar and ankle reflexes. 2+ PT pulses. NEURO: Oriented x4. PSYCH: Normal affect. Const Vital Signs: 11/12/23 13:00 11/12/23 16:59 11/12/23 18:03 Temperature 96.7 F L Temperature Source Temporal Pulse Rate 75 66 78 Respiratory Rate 18 16 18 Blood Pressure 159/58 H 145/60 H Blood Pressure Mean 91 88 Pulse Ox 97 100 97 Oxygen Delivery Method Room Air Room Air <Dr. Merlin Carrillo MD - Last Filed: 11/12/23 19:01> Physical Exam Const Vital Signs: 11/12/23 13:00 11/12/23 16:59 11/12/23 18:03 Temperature 96.7 F L Temperature Source Temporal Pulse Rate 75 66 78 Respiratory Rate 18 16 18 Blood Pressure 159/58 H 145/60 H Blood Pressure Mean 91 88 Pulse Ox 97 100 97 Oxygen Delivery Method Room Air Room Air [facility] <JOSESITO Vazquez - Last Filed: 11/12/23 18:06> [facility] Narrative Medical decision making narrative: Patient has atraumatic right quadriceps pain that radiates to the knee. He is slightly tender over the quadriceps muscle. He has no bony tenderness. There is reproducible pain with hip flexion. MSPs and reflexes are intact. He has no back pain and no radicular symptoms. Differential includes quadriceps strain, hip fracture, radiculopathy. X-rays of the right hip and knee show no acute findings. I recommended ice and Tylenol for right quadricep strain and follow-up with his primary care. Radiography Diagnostic Testing: Clinical Impression(s) from Imaging Studies Knee X-Ray 11/12/23 13:35 IMPRESSION: No evidence of acute fracture or dislocation. Electronically Signed: Bharath Chavez, DO at 13:54 EST , Hip/Pelvis X-Ray 11/12/23 17:05 IMPRESSION: No acute fracture or dislocation. Degenerative changes. Electronically Signed: Darwin CevallosEmeli Trevizo, DO at 17:27 EST , ED attending interpretation of right hip shows no fracture or dislocation. ED attending interpretation of right knee shows no fracture or dislocation. <Dr. Merlin Carrillo MD - Last Filed: 11/12/23 19:01> [facility] Narrative Medical decision making narrative: Patient has atraumatic right quadriceps pain that radiates to the knee. He is slightly tender over the quadriceps muscle. He has no bony tenderness. There is reproducible pain with hip flexion. MSPs and reflexes are intact. He has no back pain and no radicular symptoms. Differential includes quadriceps strain, hip fracture, radiculopathy. X-rays of the right hip and knee show no acute findings. I recommended ice and Tylenol for right quadricep strain and follow-up with his primary care. I have personally performed a face to face assessment of the patient and have reviewed the ELLIS Note. I performed a substantive portion of the visit including all aspects of the following. My padilla findings include: History is remarkable for pain that he localizes proximal anterior right thigh near the groin that radiates down to the knee. There is no history of trauma. He has no history of degenerative arthritis. He denies foot drop. He denies buckling his knees going up or down steps. He denies bowel or bladder dysfunction. Pain does not follow a radicular pattern. Exam is remarkable pain with initiation of gait and lifting the leg up. Romain Willian test was positive on the right. There is no discomfort with internal/external rotation of the right leg. There is no pain the patient of the greater trochanteric region. The knee is not swollen. There is no evidence of trauma. There is no laxity varus valgus rest testing. Modified Alfonso's and Krystle's test was negative. Patellas not blottable and there is no effusion. There is no neurovascular mice in that extremity. Straight leg test was negative. Crossover test was negative. Patella ankle reflex 1+. EHLs intact. Normal sensation over L3-S1 dermatome. Gait was observed and normal. There is no foot drop. Medical Decision Making per triage x-ray of the knee was obtained. Since his main complaint is hip and there is concern he may have an avulsion fracture of the quadricep for Kingsley x-ray of the hip was obtained. Other additions or changes: Three-view x-ray of the hip was independent reviewed interpreted by me as negative for any arthritic changes or fracture. 4 view x-ray of the knee was obtained per nurse protocol and is negative for fracture, subluxation dislocation or effusion. Radiography Diagnostic Testing: Clinical Impression(s) from Imaging Studies Knee X-Ray 11/12/23 13:35 IMPRESSION: No evidence of acute fracture or dislocation. Electronically Signed: Bharath Chavez DO at 13:54 EST , Hip/Pelvis X-Ray 11/12/23 17:05 IMPRESSION: No acute fracture or dislocation. Degenerative changes. Electronically Signed: Darwin TrevizoDO at 17:27 EST , Discharge Plan Triage Chief Complaint: Lower Extremity Injury ED Midlevel Provider: Paula Luis ED Provider: Merlin Carrillo Dx/Rx/DC Orders Clinical Impression: Strain of right quadriceps tendon Instructions: ED Muscle Strain, Extremity Prescriptions: No Action multivitamin [Daily Multiple] 1 EACH tablet 1 ea PO DAILY cholecalciferol (vitamin D3) [Vitamin D3] 1,000 UNIT tablet 2,000 unit PO DAILY codeine-guaifenesin 120 ML liquid 10 ml PO Q4H PRN PRN (Reason: Cough) Patient Comments: TAKE 10 ML ORALLY EVERY 4 HOURS NEEDED glipizide 5 MG tablet extended release 24hr 5 mg PO DAILY levofloxacin 750 MG tablet 750 mg PO DAILY Qty: 7 0RF benzonatate 200 mg capsule 200 mg PO TID PRN (Reason: cough) Qty: 30 0RF cetirizine [Zyrtec] 10 mg tablet 10 mg PO DAILY Qty: 30 0RF olopatadine [Pataday Once Daily Relief] 0.2 % drops 1 drp EACH EYE DAILY PRN (Reason: itching) Qty: 2.5 0RF metoprolol tartrate 25 mg tablet 25 mg PO BID Qty: 180 3RF Primary Care Provider: Homero Warren Referrals: Homero Warren DO [Primary Care Provider] - Activity Restrictions/Additional Instructions: I suspect you are having right quadriceps muscle pain. Ice and take Tylenol every 6 hours as needed. Follow-up with your primary care doctor. Disposition Disposition: Home, Self Care Discharge Date/Time: 11/12/23 18:03
--- NOTE | 2023-11-12 17:05 | RAD_ITS ---
EXAM: XR RIGHT HIP WITH PELVIS WHEN PERFORMED, 2 OR 3 VIEWS CLINICAL INDICATION: pain TECHNIQUE: Two or three views of the right hip with pelvis when performed. COMPARISON: No relevant prior studies available. FINDINGS: BONES/JOINTS: Acetabular hypertrophy and sclerosis bilaterally. Symmetric arthrosis of the bilateral SI joints. No widening of the pubic symphysis. No acute fracture or dislocation. SOFT TISSUES: No significant abnormality. No soft tissue swelling or gas. RAD/HIP, UNI W/ Pelvis 2-3 Views IMPRESSION: No acute fracture or dislocation. Degenerative changes. Electronically Signed: Darwin Trevizo DO at 17:27 EST ,
[2023-11-12 18:03] VITALS: BP 145/60; PULSE 78; RESP 18; O2SAT 97
== END 2023-11-12 18:03 | disposition home or self-care (01) ==
PROVIDERS: Emergency Provider Emergency Medicine; PCP Family Medicine; Visit Provider Emergency Medicine
DX: S76.111A Strain of right quadriceps muscle, fascia and tendon, initial encounter (principal); E11.9 Type 2 diabetes mellitus without complications; I10 Essential (primary) hypertension; X58.XXXA Exposure to other specified factors, initial encounter
CPT/HCPCS: 73502; 73564; 99282

== ENCOUNTER → 2024-01-05 | Outpatient (CLI) | payer MEDICARE, SELFPAY ==
--- NOTE | 2024-01-05 10:50 | RAD_ITS ---
STUDY: X-RAY - RIGHT KNEE REASON FOR EXAM: Male, 78 years old. R KNEE PAIN TECHNIQUE: AP and lateral view(s) of the knee. COMPARISON: None. FINDINGS: Normal visualized distal femur. Normal visualized proximal tibia and fibula. Normal proximal tibiofibular articulation. Mildly narrowed medial femorotibial compartment. Normal lateral femorotibial compartment. Normal patellofemoral articulation. Small suprapatellar spur The soft tissue structures are unremarkable. RAD/Knee 1 or 2 Views IMPRESSION: Mild degenerative arthritic changes. Electronically Signed: Tab Wade MD at 17:48 EST Reading Location ID and State: [address] [place] [address] Tel , Service support ,
== END | disposition home or self-care (01) ==
LOC: RAD 10:36
PROVIDERS: PCP Family Medicine; Referring Provider Anesthesiology Pain Medicine; Visit Provider Anesthesiology Pain Medicine
DX: M17.11 Unilateral primary osteoarthritis, right knee (principal)
CPT/HCPCS: 73560

== ENCOUNTER → 2024-05-04 | Outpatient (CLI) | payer MEDICARE, SELFPAY ==
[2024-05-04 13:15] LABS: PSA,Total- Diagnostic 1.03 ng/mL (0.0-4.0)
== END | disposition home or self-care (01) ==
PROVIDERS: PCP Family Medicine; Referring Provider Urology; Visit Provider Urology
DX: C61 Malignant neoplasm of prostate (principal); R97.20 Elevated prostate specific antigen [PSA]
CPT/HCPCS: 36415; 84153

== ENCOUNTER → 2024-06-25 | Outpatient (CLI) | payer MEDICARE, SELFPAY ==
[2024-06-25 07:10] LABS: Absolute Lymphocyte Count 2.18 X10^3/uL (0.83-4.51); Absolute Neutrophil Count 3.3 X10^3/uL (2.0-7.7); Basophil# 0.04 X10^3/uL; Basophil% 0.6 % (0-1); Eosinophil# 0.35 X10^3/uL; Eosinophils% 5.5 % (0-5); Hematocrit 40.4 % (40-54); Hemoglobin 12.8 g/dL (13.0-16.5); Lymphocyte # 2.18 X10^3/ul (0.83-4.51); Lymphocyte % 34.1 % (19-41); Mean Corp Hgb Conc 31.7 g/dL (32-36); Mean Corpuscular Hgb 25.4 pg (27.0-32.0); Mean Corpuscular Volume 80.3 fL (80-94); Mean Platelet Vol. 9.5 fl (6.2-12.0); Monocyte# 0.54 X10^3/uL; Monocyte% 8.5 % (0-10); NRBC Flagged by Analyzer 0 % (0-5); Neutrophil # 3.26 X10^3/uL (2.7-7.7); Platelet Count 257 K/mm3 (150-450); RBC Distribution Width CV 14.2 % (11.6-14.6); RBC Distribution Width SD 41.2 fl (35.1-43.9); Red Blood Count 5.03 M/mm3 (4.6-6.2); White Blood Count 6.4 K/mm3 (4.4-11.0)
[2024-06-25 07:55] LABS: ALB/GLOB Ratio 0.9 RATIO (0.9-2.4); AST(SGOT) 15 U/L (15-37); Alanine Aminotransfer ALT/SGPT 26 U/L (16-61); Albumin, Serum 3.4 g/dL (3.2-5.0); Alkaline Phosphatase 88 U/L (45-117); Anion Gap 5 (5-15); BUN 17 mg/dL (7-18); BUN/Creat Ratio 18.4 RATIO (10-20); Calcium,Total 9.1 mg/dL (8.5-10.1); Chloride 107 mmol/L (98-107); Cholesterol 177 mg/dL (200); Creatinine, Serum 0.93 mg/dL (0.70-1.30); EST Glomerular Filtration Rate 84 mL/min (>60); Est Glom Filt Rate - Afr Amer 102 mL/min (>60); Globulin 3.9 g/dL (2.2-4.2); Glucose 195 mg/dL (74-106); High Density Lipoprotein 64 mg/dL; Protein, Total 7.3 g/dL (6.4-8.2); Sodium Level 137 mmol/L (136-145); Thyroid Stim Hormone (TSH) 1.73 uIU/mL (0.358-3.74); Triglycerides 142 mg/dL; Very Low Density Lipoprotein 28 mg/dL (5-40)
[2024-06-25 09:44] LABS: Hemoglobin A1c 9.6 % (3.8-5.6)
[2024-06-25 10:40] LABS: Microalbumin,Random Urine 36.6 mg/L (NO RANGE EST.); Microalbumin:Creatinine Ratio 23.9 mg/g CRE (<30 mg/g CRE)
== END | disposition home or self-care (01) ==
PROVIDERS: PCP Family Medicine; Referring Provider Family Medicine; Visit Provider Family Medicine
DX: E11.65 Type 2 diabetes mellitus with hyperglycemia (principal); E01.0 Iodine-deficiency related diffuse (endemic) goiter; D72.10 Eosinophilia, unspecified
CPT/HCPCS: 36415; 80053; 80061; 82043; 82570; 83036; 84443; 85025

== ENCOUNTER 2024-08-28 23:52 | Emergency (ER) | payer MEDICARE, SELFPAY ==
[2024-08-28 23:52] VITALS: BP 153/70; PULSE 65; RESP 18; TEMP 36.8; O2SAT 98; BMI 27.0
[2024-08-29] MEDS: dexAMETHasone 10 MG/ML Vial PO.IVFORM (00:46)
[2024-08-29] MEDS: Benzonatate 100 MG Capsule PO (00:46)
[2024-08-29 00:50] VITALS: PULSE 67; RESP 16
[2024-08-29] MEDS: Ipratropium/Albuterol Sulfate 3 ML AMPUL.NEB INHALATION (00:50)
--- NOTE | 2024-08-29 01:00 | RAD_ITS ---
INDICATION: cough EXAMINATION/TECHNIQUE: X-RAY - XR Chest 2 Views COMPARISON: Prior study dated: 03/28/2022 FINDINGS: LINES/DEVICES: None. LUNGS: No consolidation. No pneumothorax. MEDIASTINUM: Aorta is atherosclerotic. CARDIAC SILHOUETTE: Not enlarged. BONES AND SOFT TISSUES: No acute abnormalities. Degenerative changes in the dorsal spine. RAD/Chest PA and Lateral IMPRESSION: No evidence of active intrathoracic disease. Electronically Signed: Lyubov Negrete MD at 1:28 EDT ,
--- NOTE | 2024-08-29 01:44 | EDS_ITS ---
HPI History of Present Illness Chief Complaint: Cold Sx Informant: patient Narrative Narrative: Patient is a 78-year-old male with past medical history of hypertension and [id number] type 2 diabetes. He states he is at 3 days of congestion and cough. He denies any known sick contacts. He states that when symptoms began he had generalized muscle aches with an upset stomach. He states since that time though symptoms have resolved but the congestion and cough have persisted and he is concern for pneumonia and therefore comes to the hospital for evaluation. [facility] Medical History Osteoarthritis of right hip Right hip pain Supraventricular tachycardia Hypertension Goiter Prostate cancer Type 2 diabetes mellitus without complications Home Medications ?Medication ?Instructions ?Recorded ?Last Taken ?Type cholecalciferol (vitamin D3) 25 2,000 unit PO DAILY vitamin 02/28/16 02/01/21 History mcg (1,000 unit) tablet (Vitamin D3) multivitamin (Daily Multiple 1 ea PO DAILY vitamin 02/28/16 02/01/21 History tablet) metoprolol tartrate 25 mg tablet 25 mg PO BID #180 TABLETS 05/03/19 02/01/21 Rx glipizide 5 mg tablet, extended 5 mg PO DAILY diabetes 02/02/21 02/01/21 History release 24 hr olopatadine 0.2 % eye drops 1 drp EACH EYE DAILY PRN itching 03/28/22 Unknown Rx (Pataday Once Daily Relief) #2.5 mL albuterol sulfate 90 mcg/actuation 2 puff inhalation Q4H PRN PRN 08/29/24 Unknown Rx aerosol inhaler (Ventolin HFA) Wheezing/SOB #1 device azelastine 137 mcg (0.1 %) nasal 2 spray intranasal BID #30 mL 08/29/24 Unknown Rx spray benzonatate 100 mg capsule 100 mg PO TID PRN cough #30 caps 08/29/24 Unknown Rx Allergy/AdvReac Type Severity Reaction Status Date / Time No Known Allergies Allergy Verified 08/28/24 23:55 Family History Mother Hypertension Sister Hypertension Diabetes Father Kidney disease Surgical History excision pigmented skin lesion (~10/2012) S/P thyroid biopsy (~05/2017) Social History Smoking Status: Never smoker ROS ROS ED Constitutional Constitutional ED: Denies chills or fever(s) Eyes Eyes: Denies blurry vision or change in vision ENT ENT ED: Reports rhinorrhea and sore throat Cardiovascular Cardiovascular: Denies chest pain Respiratory/Chest Respiratory/Chest: Reports cough and dyspnea Gastrointestinal Gastrointestinal: Denies abdominal pain, diarrhea, nausea or vomiting Genitourinary Genitourinary ED: Denies dysuria Musculoskeletal Musculoskeletal: Reports myalgias Integumentary Denies rash Neurologic Neurologic: Denies headache(s) Hematologic/Lymphatic Hematologic/Lymphatic: Denies easy bleeding or easy bruising Allergic/Immunologic Allergic/Immunologic ED: Denies mouth swelling or tongue swelling EXAM Physical Exam Const Vital Signs: 08/28/24 23:52 08/29/24 00:50 Temperature 98.3 F Temperature Source Oral Pulse Rate 65 67 Respiratory Rate 18 16 Respiratory Pattern Normal Blood Pressure 153/70 H Blood Pressure Mean 97 Pulse Ox 98 Oxygen Delivery Method Room Air Positive well nourished and well developed General Appearance ED: well developed; Negative for pallor HEENT HEENT Narrative: Nasal mucosa is hyperemic and boggy Cobblestoning is noted in the posterior pharynx consistent with sinus drainage without airway edema or compromise No tongue or lip swelling no oral lesions No secondary findings to suggest infection posterior pharynx Eyes PERRL and EOMs intact bilaterally General Eye ED: Negative for scleral icterus Neck supple and no JVD Chest Wall palpation of chest normal Resp normal respiratory effort Resp Narrative: Breath sounds are diminished throughout with faint rhonchi and expiratory wheeze in the bilateral lower lobes. However no nasal flaring retractions tachypnea or accessory muscle use Cardio regular rate and regular rhythm Extremity normal to inspection Extremity Narrative: No asymmetric edema no pitting edema negative Homans' sign bilaterally Neuro oriented x3, CN's II-XII intact bilaterally and no sensory deficits noted Sensorium / Orientation: alert Motor Exam: strength 5/5 throughout Psych mental status grossly normal Skin no rashes or lesions noted and no wounds General Skin Exam: Negative for jaundice or pallor MDM MDM MDM Narrative Medical decision making narrative: Patient arrived to the ER hypertensive but has a past medical history of this. His history of present illness and physical exam are consistent with viral upper respiratory tract infection secondary to COVID versus influenza versus RSV. There is also concern for potential pneumonia as a cause of his cough. Therefore a viral swab and a chest x-ray were obtained. Viral swab was negative and chest x-ray revealed no signs of lung pathology such as pneumonia or pneumothorax. This indicates patient has a viral URI. He is not in respiratory distress he is not hypoxic he is not requiring supplemental oxygen and therefore he can be started on symptomatic medications and is otherwise safe for discharge History & Record Review Discussion w/independent historian: Patient Radiography Diagnostic Testing: Clinical Impression(s) from Imaging Studies Chest X-Ray 08/29/24 01:00 IMPRESSION: No evidence of active intrathoracic disease. Electronically Signed: Lyubov Negrete MD at 1:28 EDT , 2 view chest x-ray as interpreted by the emergency medicine physician reveals bronchial streaking consistent with viral upper respiratory tract infection without acute infiltrate pneumothorax or pleural effusion Discharge Plan Triage Chief Complaint: Cold Sx ED Provider: Edgar Petit Dx/Rx/DC Orders Clinical Impression: Viral upper respiratory tract infection with cough, Hypertension, Diabetes mellitus type II, non insulin dependent Instructions: ED URI, Viral W/ Wheezing (Adult) Prescriptions: New azelastine 137 mcg (0.1 %) spray,non-aerosol 2 spray intranasal BID Qty: 30 0RF Rx Instructions: administer into each nostril benzonatate 100 mg capsule 100 mg PO TID PRN (Reason: cough) Qty: 30 0RF albuterol sulfate [Ventolin HFA] 90 mcg/actuation HFA aerosol inhaler 2 puff inhalation Q4H PRN PRN (Reason: Wheezing/SOB) Qty: 1 0RF No Action multivitamin [Daily Multiple] 1 EACH tablet 1 ea PO DAILY cholecalciferol (vitamin D3) [Vitamin D3] 1,000 UNIT tablet 2,000 unit PO DAILY glipizide 5 MG tablet extended release 24hr 5 mg PO DAILY olopatadine [Pataday Once Daily Relief] 0.2 % drops 1 drp EACH EYE DAILY PRN (Reason: itching) Qty: 2.5 0RF metoprolol tartrate 25 mg tablet 25 mg PO BID Qty: 180 3RF Primary Care Provider: Homero Warren Referrals: Homero Warren DO [Primary Care Provider] - Activity Restrictions/Additional Instructions: Your chest x-ray revealed no pneumonia and your COVID influenza and RSV test were negative indicating you have a viral upper respiratory tract infection. This should resolve spontaneously over the next 7 to 10 days. Take your prescribed medication as directed to help control your symptoms and return to the ER should you have any further concerns. Print Language: Portuguese Disposition Disposition: Home, Self Care Discharge Date/Time: 08/29/24 01:55
== END 2024-08-29 01:55 | disposition home or self-care (01) ==
PROVIDERS: Emergency Provider Emergency Medicine; PCP Family Medicine; Visit Provider Emergency Medicine
DX: J06.9 Acute upper respiratory infection, unspecified (principal); E11.9 Type 2 diabetes mellitus without complications; I10 Essential (primary) hypertension; Z79.899 Other long term (current) drug therapy
CPT/HCPCS: 71046; 87631; 94640; 99283

== ENCOUNTER → 2024-08-31 | Outpatient (CLI) | payer MEDICARE, SELFPAY | END | disposition home or self-care (01) | LOC: LABSPEC 14:24 | PROVIDERS: PCP Family Medicine; Referring Provider Family Medicine; Visit Provider Family Medicine | DX: R05.9 Cough, unspecified (principal) | CPT/HCPCS: 87070; 87077; 87186; 87205 ==

== ENCOUNTER 2024-09-02 21:52 | Emergency (ER) | payer MEDICARE, SELFPAY ==
[2024-09-02 21:54] VITALS: BP 143/61; PULSE 110; RESP 18; TEMP 37.2; O2SAT 97; BMI 25.2
--- NOTE | 2024-09-02 22:45 | EX.ED.VIS.UR ---
HPI HPI - URI History of Present Illness Chief Complaint: Cold Sx Informant: patient Onset/Context/Timing Onset: Days Context: Gradual Onset Timing: Continuous Current Severity: Mild Maximum Severity: Mild Associated Symptoms Associated Symptoms: Positive for Nasal Congestion, Nausea and Productive Cough (Yellow and green sputum. No blood.) Narrative Narrative: 78-year-old male history of diabetes, hypertension prostate cancer. Was seen here on 08/29. Had a negative chest x-ray and negative COVID, flu and RSV done at that time. Said he has been feeling well. He has had a productive cough of greenish and yellow sputum. No hemoptysis. Just that he feels weak. Now has developed nausea without vomiting or diarrhea. He was prescribed an inhaler which has helped his wheezing. He is currently not on any antibiotic. Prior similar symptoms: Yes Recent Illness/Hospitalization: No ROS ROS ED ROS Narrative Cough. Productive sputum. Nausea. Constitutional Constitutional ED: Denies chills or fever(s) Eyes Eyes: Denies blurry vision ENT ENT ED: Denies ear pain Cardiovascular Cardiovascular: Denies chest pain Respiratory/Chest Respiratory/Chest: Reports cough and sputum; Denies dyspnea Gastrointestinal Gastrointestinal: Reports nausea; Denies abdominal pain, constipation, diarrhea, melena or vomiting Genitourinary Genitourinary ED: Denies dysuria or hematuria Musculoskeletal Musculoskeletal: Denies arthralgias Integumentary Denies abscess Neurologic Neurologic: Denies headache(s) Psychiatric Psychiatric: Denies anxiety or depression Endocrine Endocrinology: Denies cold intolerance Hematologic/Lymphatic Hematologic/Lymphatic: Denies easy bleeding Allergic/Immunologic Allergic/Immunologic ED: Denies mouth swelling PFSH PFSH Medical History Osteoarthritis of right hip Right hip pain Supraventricular tachycardia Hypertension Goiter Prostate cancer Type 2 diabetes mellitus without complications Home Medications ?Medication ?Instructions ?Recorded ?Last Taken ?Type cholecalciferol (vitamin D3) 25 2,000 unit PO DAILY vitamin 02/28/16 02/01/21 History mcg (1,000 unit) tablet (Vitamin D3) multivitamin (Daily Multiple 1 ea PO DAILY vitamin 02/28/16 02/01/21 History tablet) metoprolol tartrate 25 mg tablet 25 mg PO BID #180 TABLETS 05/03/19 02/01/21 Rx glipizide 5 mg tablet, extended 5 mg PO DAILY diabetes 02/02/21 02/01/21 History release 24 hr olopatadine 0.2 % eye drops 1 drp EACH EYE DAILY PRN itching 03/28/22 Unknown Rx (Pataday Once Daily Relief) #2.5 mL albuterol sulfate 90 mcg/actuation 2 puff inhalation Q4H PRN PRN 08/29/24 Unknown Rx aerosol inhaler (Ventolin HFA) Wheezing/SOB #1 device azelastine 137 mcg (0.1 %) nasal 2 spray intranasal BID #30 mL 08/29/24 Unknown Rx spray benzonatate 100 mg capsule 100 mg PO TID PRN cough #30 caps 08/29/24 Unknown Rx azithromycin 250 mg tablet 250 mg PO DAILY 4 days #4 tabs 09/03/24 Unknown Rx (Zithromax Z-Amarjit) ondansetron 4 mg disintegrating 4 mg PO Q6H PRN nausea and 09/03/24 Unknown Rx tablet vomiting #7 tabs Allergy/AdvReac Type Severity Reaction Status Date / Time No Known Allergies Allergy Verified 09/02/24 21:57 Family History Mother Hypertension Sister Hypertension Diabetes Father Kidney disease Surgical History excision pigmented skin lesion (~10/2012) S/P thyroid biopsy (~05/2017) Social History Smoking Status: Never smoker EXAM Physical Exam Narrative Exam Narrative: Says that he-year-old male no acute distress. Vital signs stable afebrile. Pulse ox 97% on room air no hypoxia. H EENT exam mild dry mucous members. Posterior pharynx unremarkable. Neck nontender no lymphadenopathy. Lungs coarse breath sounds left base. No rales or rhonchi at this time. No wheezing. Heart tachycardic 110 no murmur. Chest wall ribs nontender. Abdomen soft nontender. Moving all 4 extremities. Calves are nontender without edema or cords. Back nontender. Neurologically is awake and alert no focal motor deficits. Const Vital Signs: 09/02/24 21:54 09/02/24 23:14 09/03/24 00:24 Temperature 98.9 F 97.8 F Temperature Source Oral Pulse Rate 110 H 86 Respiratory Rate 18 16 Respiratory Effort Normal Non-Labored Respiratory Pattern Normal Blood Pressure 143/61 H 151/67 H Blood Pressure Mean 88 95 Pulse Ox 97 95 Oxygen Delivery Method Room Air Positive well nourished and well developed; Negative for obese, cachectic or contractures General Appearance ED: well developed and NAD; Negative for cachectic, contractures, cyanotic, diaphoretic or pallor Nutritional Appearance: Negative for cachectic or obese HEENT Reports dry mucous membranes; Denies moist mucous membranes normocephalic and atraumatic; Negative for scalp tenderness Mouth ED: Yes dry mucous membranes Mouth: dry mucous membranes Throat: posterior oropharynx normal Eyes PERRL and EOMs intact bilaterally General Eye ED: Negative for pale conjunctiva or scleral icterus Neck no lymphadenopathy, supple and no meningeal signs General: Negative for anterior neck swelling or lymphadenopathy Resp normal respiratory effort and No clear to auscultation bilaterally Resp Narrative: Coarse breath sounds left base. Auscultation: Negative for rales, rhonchi or wheezes Cardio S1 normal heart sound, S2 normal heart sound and no murmurs Rate: tachycardic; Negative for regular rate Rhythm: regular rhythm GI non-tender, non-distended and no masses Inspection: Negative for abdominal distention Auscultation: normoactive bowel sounds Palpation: soft; Negative for tender or guarding Back/Spine no CVA tenderness and normal ROM General Back: Negative for CVA tenderness Cervical Spine: Negative for cervical spine tenderness Thoracic Spine / Upper Back: Negative for thoracic spinal tenderness Lumbar Spine / Lower Back: Negative for lumbar spinal tenderness Sacrum: Negative for tenderness Extremity normal to inspection and full ROM General Extremety ED: Negative for cyanosis or tenderness General Extremity: Negative for cyanosis Neuro oriented x3 and CN's II-XII intact bilaterally Sensorium / Orientation: alert, oriented to person, oriented to place and oriented to time Motor Exam: strength 5/5 throughout Psych mental status grossly normal Appearance: Negative for other Attitude: No agitated Mood & Affect: Negative for depressed, anxious or tearful Skin General Skin Exam: Negative for jaundice or pallor Lesions: no lesions Rashes: no rashes Trauma: Negative for abrasion or laceration MDM MDM MDM Narrative Medical decision making narrative: 78-year-old male with URI symptoms with nausea. Clinically appears mildly dehydrated. Will see if we can orally hydrate him. Zofran for nausea. Chest x-ray to rule out pneumonia coarse breath sounds in his left lung base. Screening labs due to his history of cancer and his complaint of weakness. Repeat exam unchanged. Patient doing well. We discussed all his test results. Treatment plan. Patient's labs are unremarkable. He does have a positive sputum culture with staph. Given his cough. He is not improving. To be started on Zithromax. First dose given here. Outpatient follow-up. Fluids and rest. He has an inhaler for home. History & Record Review Discussion w/independent historian: Patient and Family Additional record(s) reviewed:: Prior inpatient record, Prior outpatient record, Prior ED visit and Prior labs Lab Data Attestation: I reviewed the patient's lab results. Lab results narrative: CBC shows white count 1.6. H&H 14 and 43. Platelets 214. Electrolytes show sodium 131. Gap 10. Normal BUN and creatinine at thirteen 0.9. Glucose elevated to 99 history of diabetes. Chest x-ray unremarkable and unchanged no obvious pneumonia. Interpreted both by myself and the radiologist. Patient did recent have sputum culture done with staph positive. Sensitivity pending. In light of his symptoms I am to start him on antibiotic Zithromax. Labs: Laboratory Results - last 24 hr 09/02/24 23:21 WBC 11.6 H RBC 5.44 Hgb 14.3 Hct 43.3 MCV 79.6 L MCH 26.3 L MCHC 33.0 RDW Std Deviation 39.1 RDW Coeff of Rg 13.7 Plt Count 214 MPV 9.6 Immature Gran % (Auto) 0.500 Neut % (Auto) 79.3 H Lymph % (Auto) 11.9 L [place] % (Auto) 7.8 Eos % (Auto) 0.3 Baso % (Auto) 0.2 Absolute Neuts (auto) 9.2 H Absolute Lymphs (auto) 1.38 Nucleated RBC % 0 Sodium 131 L Potassium 4.2 Chloride 99 Carbon Dioxide 22.0 Anion Gap 10 BUN 13 Creatinine 0.99 Estim Creat Clear Calc 61.41 Est GFR (MDRD) Af Amer 94 Est GFR (MDRD) Non-Af 78 BUN/Creatinine Ratio 13.1 Glucose 299 H Calcium 9.1 Radiography Chest X-Ray - ED: 2 View, Read by ED Physician, Normal, Heart, Lungs, Mediastinum, Bony Structures, No Acute Disease and Chronic Changes Diagnostic Testing: Clinical Impression(s) from Imaging Studies Chest X-Ray 09/02/24 23:22 IMPRESSION: No acute cardiopulmonary disease. Electronically Signed: Alex Maradiaga MD at 23:48 EDT Reading Location ID and State: [address] [place] [address] , Service support , Chest x-ray, 2 views, AP and lateral, interpreted by myself and radiologist shows no acute abnormality. Normal cardiac silhouette. No pneumonia. No effusion. No change from prior chest x-ray several days ago. Discharge Plan Triage Chief Complaint: Cold Sx ED Provider: Lonnie Caceres Dx/Rx/DC Orders Clinical Impression: Bronchitis, History of diabetes mellitus, Acute hyponatremia, Acute hyperglycemia Instructions: ED Bronchitis with Wheezing (Adult) Prescriptions: New azithromycin [Zithromax Z-Amarjit] 250 mg tablet 250 mg PO DAILY 4 Days Qty: 4 0RF Rx Instructions: start on day 2 of therapy ondansetron 4 mg tablet,disintegrating 4 mg PO Q6H PRN (Reason: nausea and vomiting) Qty: 7 0RF No Action multivitamin [Daily Multiple] 1 EACH tablet 1 ea PO DAILY cholecalciferol (vitamin D3) [Vitamin D3] 1,000 UNIT tablet 2,000 unit PO DAILY glipizide 5 MG tablet extended release 24hr 5 mg PO DAILY olopatadine [Pataday Once Daily Relief] 0.2 % drops 1 drp EACH EYE DAILY PRN (Reason: itching) Qty: 2.5 0RF azelastine 137 mcg (0.1 %) spray,non-aerosol 2 spray intranasal BID Qty: 30 0RF Rx Instructions: administer into each nostril benzonatate 100 mg capsule 100 mg PO TID PRN (Reason: cough) Qty: 30 0RF albuterol sulfate [Ventolin HFA] 90 mcg/actuation HFA aerosol inhaler 2 puff inhalation Q4H PRN PRN (Reason: Wheezing/SOB) Qty: 1 0RF metoprolol tartrate 25 mg tablet 25 mg PO BID Qty: 180 3RF Primary Care Provider: Homero Warren Referrals: Homero Warren, DO [Primary Care Provider] - 3-5 Days if not improving Activity Restrictions/Additional Instructions: Chest x-ray and labs look good. Your blood sugar was elevated to 99. You had a sputum culture done the other day it was staph RES positive. This is a bacterial infection. To treat that we will put you on the antibiotic Zithromax which should cover it. Follow-up with your doctor to ensure you are improving or return if worse. Plenty of fluids and rest. Tylenol for any fever. Return if you are feeling a lot worse. Watch your blood sugars. The antibiotic Zithromax once a day for the next 4 days starting on Friday. Tonight's dose will be your Friday dose. Print Language: Divehi Disposition Disposition: Home, Self Care
[2024-09-02] MEDS: Ondansetron 4 MG/2 ML Vial IV (23:19)
--- NOTE | 2024-09-02 23:22 | RAD_ITS ---
STUDY: X-RAY CHEST REASON FOR EXAM: Male, 78 years old. Cough TECHNIQUE: Frontal and lateral views of the chest. COMPARISON: August 29, 2024 FINDINGS: The lungs are clear and expanded. There is right upper lung granuloma. There is no demonstrated pleural abnormality. Normal size heart. Normal mediastinum and jodi. Normal visualized pulmonary arteries. Normal visualized aortic arch and descending thoracic aorta. Normal visualized thoracic spine. Normal visualized ribs, clavicles, and shoulders. There is no demonstrated abnormality of the visualized soft tissue structures of the upper abdomen. RAD/Chest PA and Lateral IMPRESSION: No acute cardiopulmonary disease. Electronically Signed: Alex Maradiaga MD at 23:48 EDT ,
[2024-09-02 23:30] LABS: Absolute Lymphocyte Count 1.38 X10^3/uL (0.83-4.51); Absolute Neutrophil Count 9.2 X10^3/uL (2.0-7.7); Basophil# 0.02 X10^3/uL; Basophil% 0.2 % (0-1); Eosinophil# 0.04 X10^3/uL; Eosinophils% 0.3 % (0-5); Hematocrit 43.3 % (40-54); Hemoglobin 14.3 g/dL (13.0-16.5); Lymphocyte # 1.38 X10^3/ul (0.83-4.51); Lymphocyte % 11.9 % (19-41); Mean Corpuscular Hgb 26.3 pg (27.0-32.0); Mean Corpuscular Volume 79.6 fL (80-94); Mean Platelet Vol. 9.6 fl (6.2-12.0); Monocyte# 0.91 X10^3/uL; Monocyte% 7.8 % (0-10); NRBC Flagged by Analyzer 0 % (0-5); Neutrophil # 9.19 X10^3/uL (2.7-7.7); Neutrophil % 79.3 % (47-70); Platelet Count 214 K/mm3 (150-450); RBC Distribution Width CV 13.7 % (11.6-14.6); RBC Distribution Width SD 39.1 fl (35.1-43.9); Red Blood Count 5.44 M/mm3 (4.6-6.2); White Blood Count 11.6 K/mm3 (4.4-11.0)
[2024-09-02 23:44] LABS: Anion Gap 10 (5-15); BUN 13 mg/dL (7-18); BUN/Creat Ratio 13.1 RATIO (10-20); Calcium,Total 9.1 mg/dL (8.5-10.1); Chloride 99 mmol/L (98-107); Creatinine, Serum 0.99 mg/dL (0.70-1.30); EST Glomerular Filtration Rate 78 mL/min (>60); Est Glom Filt Rate - Afr Amer 94 mL/min (>60); Estimated Creatinine Clearance 61.41 ml/min; Glucose 299 mg/dL (74-106); Potassium 4.2 mmol/L (3.5-5.1); Sodium Level 131 mmol/L (136-145)
[2024-09-03] MEDS: Azithromycin 250 MG Tablet 500 MG PO (00:18)
[2024-09-03 00:24] VITALS: BP 151/67; PULSE 86; RESP 16; TEMP 36.6; O2SAT 95
== END 2024-09-03 00:25 | disposition home or self-care (01) ==
PROVIDERS: Emergency Provider Emergency Medicine; PCP Family Medicine; Visit Provider Emergency Medicine
DX: J40 Bronchitis, not specified as acute or chronic (principal); E11.65 Type 2 diabetes mellitus with hyperglycemia; E87.1 Hypo-osmolality and hyponatremia; I10 Essential (primary) hypertension; Z79.51 Long term (current) use of inhaled steroids; Z79.899 Other long term (current) drug therapy
CPT/HCPCS: 71046; 80048; 85025; 96374; 99284; A4216; J2405

== ENCOUNTER → 2024-09-09 | Outpatient (CLI) | payer MEDICARE, SELFPAY ==
--- NOTE | 2024-09-09 13:25 | CT_ITS ---
STUDY: CT BRAIN WITH AND WITHOUT CONTRAST REASON FOR EXAM: Male, 78 years old. NEW ONSET UNILATERAL HEADACHE WORSE WITH COUGHING RADIATION DOSAGE (If Supplied By Facility): CTDIvol = ( 44.99 ) mGy, DLP = ( 1614.72 ) mGycm TECHNIQUE: Transaxial CT imaging of the brain was performed pre and post contrast administration. The examination was performed with intravenous administration of IV 50mL [id number]-300. Individualized dose optimization techniques were used for this CT. COMPARISON: Comparison is made with prior study dated December 04, 2012. FINDINGS: Normal soft tissue structures. Normal calvarium. There is mild cerebral atrophy with widening of the extra-axial spaces and ventricular dilatation. Normal white matter tracts of the cerebral hemispheres. Normal basal ganglia and thalami. Normal brainstem. Normal cerebellum. There is no intracranial hemorrhage. There are no findings of an acute ischemic infarction. Atherosclerotic calcification of the cavernous portions of the internal carotid arteries bilaterally. Pansinusitis affecting the maxillary sinuses as well as the ethmoid sinuses, the sphenoid sinuses and the frontal sinus. CT/Brain/Head W/WO Contrast IMPRESSION: Chronic involutional changes of the brain. Pansinusitis. Electronically Signed: Jaylan Lewis MD at 13:48 EDT ,
== END | disposition home or self-care (01) ==
LOC: CT 13:23
PROVIDERS: PCP Family Medicine; Referring Provider Family Medicine; Visit Provider Family Medicine
DX: R51.9 Headache, unspecified (principal)
CPT/HCPCS: 70470; Q9967

== ENCOUNTER → 2024-12-13 | Outpatient (CLI) | payer MEDICARE, SELFPAY ==
--- NOTE | 2024-12-13 08:36 | RAD_ITS ---
STUDY: X-RAY - ESOPHAGUS (BARIUM SWALLOW) WITH FLUOROSCOPY REASON FOR EXAM: Male, 79 years old. DYSPHAGIA TECHNIQUE: 47 fluoroscopic view(s) of the esophagus were obtained following swallowing of barium. FLUOROSCOPY TIME (if supplied): (38 seconds) minutes/seconds. 3.8 mCi COMPARISON: None. FINDINGS: There is no demonstrated esophageal foreign body. There is no demonstrated stricture or mucosal abnormality. Normal gastroesophageal junction, without a demonstrated hiatal hernia. The patient ingested a 12 mm tablet of barium without any difficulty. Normal visualized aortic arch and descending thoracic aorta. Normal visualized pulmonary parenchyma. Normal visualized osseous structures of the thorax. RAD/Esophagus Dual Contrast IMPRESSION: Normal plain film x-ray examination (barium swallow) of the esophagus. Electronically Signed: Jaylan Lewis MD at 14:58 EST ,
== END | disposition home or self-care (01) ==
LOC: RAD 08:18
PROVIDERS: PCP Family Medicine; Referring Provider Otolaryngology; Visit Provider Otolaryngology
DX: R13.12 Dysphagia, oropharyngeal phase (principal)
CPT/HCPCS: 74221

== ENCOUNTER 2025-02-14 09:47 | Outpatient (RCR) | payer MEDICARE, SELFPAY | END 2025-02-14 23:59 | LOC: NS 09:47 | PROVIDERS: PCP Family Medicine; Referring Provider Family Medicine; Visit Provider Family Medicine | DX: Z71.3 Dietary counseling and surveillance (principal); E11.9 Type 2 diabetes mellitus without complications | CPT/HCPCS: 97802 ==

== ENCOUNTER → 2025-05-09 | Outpatient (CLI) | payer MEDICARE, SELFPAY ==
[2025-05-09 13:13] LABS: PSA,Total - Annual Screen 1.42 ng/mL (0.02-4.00)
== END | disposition home or self-care (01) ==
LOC: LAB 11:36
PROVIDERS: PCP Family Medicine; Referring Provider Urology; Visit Provider Urology
DX: C61 Malignant neoplasm of prostate (principal)
CPT/HCPCS: 36415; 84153; G0103